=== PATIENT | female | born 1965 | race African-American/Black ===

== ENCOUNTER 2018-11-16 23:33 | Inpatient (IN) | payer OTHER ==
[2018-11-16] MEDS ORDERED: HYDROmorphone 1 MG/ML 1 ML SYRINGE IVP STA (23:55)
[2018-11-16] MEDS ORDERED: SODIUM CHLORIDE 0.9% 500 ML 500 ML IV STA (23:55)
[2018-11-16] MEDS ORDERED: SODIUM CHLORIDE 0.9% 1,000 ML IV STA (23:55)
--- NOTE | 2018-11-17 00:32 | ED ---
Abdominal Pain HPI - General Chief Complaint: Abdominal Pain Stated Complaint: Pain LLQ Time Seen by Provider: 11/16/18 23:55 Source: patient, RN notes reviewed, old records reviewed Mode of arrival: ambulatory Limitations: no limitations - History of Present Illness Initial Comments: This is a 53-year-old female the ER for evaluation left for quadrant abdominal pain left lower quadrant tenderness. No prior history of colonoscopy or surgery. Patient is mild nausea no vomiting. No recent diarrhea. -: days(s) Location: LLQ, suprapubic Radiation: LLQ Migration to: suprapubic Severity: moderate Severity scale (1-10): 4 Quality: cramping, stabbing, aching Consistency: intermittent Improves With: nothing Worsens With: nothing Associated Symptoms: nausea - Related Data Allergies Allergy/AdvReac Type Severity Reaction Status Date / Time No Known Allergies Allergy Verified 11/16/18 23:49 Review of Systems ROS Statement: Those systems with pertinent positive or pertinent negative responses have been documented in the HPI. ROS Other: All systems not noted in ROS Statement are negative. Past Medical History Past Medical History: Hypertension Additional Past Medical History / Comment(s): Heart murmur History of Any Multi-Drug Resistant Organisms: None Reported Past Surgical History: No Surgical Hx Reported Past Psychological History: No Psychological Hx Reported Smoking Status: Current every day smoker Past Alcohol Use History: Rare Past Drug Use History: None Reported - Past Family History Father Family Medical History: Renal Disease Mother Additional Family Medical History / Comment(s): from ALS General Exam Limitations: no limitations General appearance: alert, in no apparent distress Head exam: Present: atraumatic, normocephalic, normal inspection Eye exam: Present: normal appearance, PERRL, EOMI. Absent: scleral icterus, conjunctival injection, periorbital swelling ENT exam: Present: normal exam, mucous membranes moist Neck exam: Present: normal inspection. Absent: tenderness, meningismus, lymphadenopathy Respiratory exam: Present: normal lung sounds bilaterally. Absent: respiratory distress, wheezes, rales, rhonchi, stridor Cardiovascular Exam: Present: regular rate, normal rhythm, normal heart sounds. Absent: systolic murmur, diastolic murmur, rubs, gallop, clicks GI/Abdominal exam: Present: soft, tenderness, guarding, normal bowel sounds. Absent: distended, rebound, rigid Extremities exam: Present: normal inspection, full ROM, normal capillary refill. Absent: tenderness, pedal edema, joint swelling, calf tenderness Back exam: Present: normal inspection Neurological exam: Present: alert, oriented X3, CN II-XII intact Psychiatric exam: Present: normal affect, normal mood Skin exam: Present: warm, dry, intact, normal color. Absent: rash Course Vital Signs 11/16/18 11/17/18 23:44 02:28 Temperature 99.9 F H 99.5 F Pulse Rate 90 86 Respiratory 18 17 Rate Blood Pressure 151/109 152/76 O2 Sat by Pulse 100 100 Oximetry Medical Decision Making - Medical Decision Making 53 female the ER for evaluation. Patient resents today for evaluation regards to abdominal pain, positive diverticulitis with abscess. We will admit for general surgery evaluation - Lab Data Result diagrams: 11/16/18 00:15 11/16/18 00:15 Lab Results 11/16/18 11/16/18 11/16/18 Range/Units 00:15 00:15 00:15 WBC 12.0 H (3.8-10.6) k/uL RBC 4.60 (3.80-5.40) m/uL Hgb 13.8 (11.4-16.0) gm/dL Hct 42.6 (34.0-46.0) % MCV 92.6 (80.0-100.0) fL MCH 30.1 (25.0-35.0) pg MCHC 32.4 (31.0-37.0) g/dL RDW 12.3 (11.5-15.5) % Plt Count 388 (150-450) k/uL Neutrophils % 63 % Lymphocytes % 27 % Monocytes % 5 % Eosinophils % 3 % Basophils % 1 % Neutrophils # 7.6 (1.3-7.7) k/uL Lymphocytes # 3.2 (1.0-4.8) k/uL Monocytes # 0.6 (0-1.0) k/uL Eosinophils # 0.3 (0-0.7) k/uL Basophils # 0.1 (0-0.2) k/uL Sodium 140 (137-145) mmol/L Potassium 3.9 (3.5-5.1) mmol/L Chloride 105 (98-107) mmol/L Carbon Dioxide 26 (22-30) mmol/L Anion Gap 9 mmol/L BUN 11 (7-17) mg/dL Creatinine 0.89 (0.52-1.04) mg/dL Est GFR (CKD-EPI)AfAm 85 (>60 ml/min/1.73 sqM) Est GFR (CKD-EPI)NonAf 74 (>60 ml/min/1.73 sqM) Glucose 97 (74-99) mg/dL Plasma Lactic Acid Adrien 1.3 (0.7-2.0) mmol/L Calcium 9.5 (8.4-10.2) mg/dL Total Bilirubin 0.5 (0.2-1.3) mg/dL AST 21 (14-36) U/L ALT 28 (9-52) U/L Alkaline Phosphatase 86 (38-126) U/L Total Protein 7.6 (6.3-8.2) g/dL Albumin 4.1 (3.5-5.0) g/dL Amylase 77 (30-110) U/L Lipase 67 (23-300) U/L Urine Color Urine Appearance (Clear) Urine pH (5.0-8.0) Ur Specific Anthony (1.001-1.035) Urine Protein (Negative) Urine Glucose (UA) (Negative) Urine Ketones (Negative) Urine Blood (Negative) Urine Nitrite (Negative) Urine Bilirubin (Negative) Urine Urobilinogen (<2.0) mg/dL Ur Leukocyte Esterase (Negative) 11/16/18 Range/Units 00:15 WBC (3.8-10.6) k/uL RBC (3.80-5.40) m/uL Hgb (11.4-16.0) gm/dL Hct (34.0-46.0) % MCV (80.0-100.0) fL MCH (25.0-35.0) pg MCHC (31.0-37.0) g/dL RDW (11.5-15.5) % Plt Count (150-450) k/uL Neutrophils % % Lymphocytes % % Monocytes % % Eosinophils % % Basophils % % Neutrophils # (1.3-7.7) k/uL Lymphocytes # (1.0-4.8) k/uL Monocytes # (0-1.0) k/uL Eosinophils # (0-0.7) k/uL Basophils # (0-0.2) k/uL Sodium (137-145) mmol/L Potassium (3.5-5.1) mmol/L Chloride (98-107) mmol/L Carbon Dioxide (22-30) mmol/L Anion Gap mmol/L BUN (7-17) mg/dL Creatinine (0.52-1.04) mg/dL Est GFR (CKD-EPI)AfAm (>60 ml/min/1.73 sqM) Est GFR (CKD-EPI)NonAf (>60 ml/min/1.73 sqM) Glucose (74-99) mg/dL Plasma Lactic Acid Adrien (0.7-2.0) mmol/L Calcium (8.4-10.2) mg/dL Total Bilirubin (0.2-1.3) mg/dL AST (14-36) U/L ALT (9-52) U/L Alkaline Phosphatase (38-126) U/L Total Protein (6.3-8.2) g/dL Albumin (3.5-5.0) g/dL Amylase (30-110) U/L Lipase (23-300) U/L Urine Color Light Yellow Urine Appearance Clear (Clear) Urine pH 6.0 (5.0-8.0) Ur Specific Anthony 1.005 (1.001-1.035) Urine Protein Negative (Negative) Urine Glucose (UA) Negative (Negative) Urine Ketones Negative (Negative) Urine Blood Negative (Negative) Urine Nitrite Negative (Negative) Urine Bilirubin Negative (Negative) Urine Urobilinogen <2.0 (<2.0) mg/dL Ur Leukocyte Esterase Negative (Negative) - Radiology Data Radiology results: report reviewed (CT abdomen pelvis is positive diverticulitis with abscess.), image reviewed Disposition Clinical Impression: Abdominal pain, Diverticulitis Disposition: ADMITTED IP TO THIS [facility] Condition: Good Is patient prescribed a controlled substance at d/c from ED?: No
[2018-11-17 00:35] LABS: Appearance,Urine Clear (Clear); Basophils # (A) 0.1 k/uL (0-0.2); Basophils % (A) 1 %; Bilirubin,Urine Negative (Negative); Blood,Urine Negative (Negative); Color,Urine Light Yellow; Eosinophils # (A) 0.3 k/uL (0-0.7); Eosinophils % (A) 3 %; Glucose,Urine (UA) Negative (Negative); HCT 42.6 % (34.0-46.0); HGB 13.8 gm/dL (11.4-16.0); Ketones,Urine Negative (Negative); Leukocyte Esterase,Urine Negative (Negative); Lymphocytes # (A) 3.2 k/uL (1.0-4.8); Lymphocytes % (A) 27 %; MCH 30.1 pg (25.0-35.0); MCHC 32.4 g/dL (31.0-37.0); MCV 92.6 fL (80.0-100.0); Mean Platelet Volume 6.5; Monocytes # (A) 0.6 k/uL (0-1.0); Monocytes % (A) 5 %; Neutrophils # (A) 7.6 k/uL (1.3-7.7); Neutrophils % (A) 63 %; Nitrite,Urine Negative (Negative); Platelet Count 388 k/uL (150-450); Protein,Urine Negative (Negative); RDW 12.3 % (11.5-15.5); Specific Gravity,Urine 1.005 (1.001-1.035); Urobilinogen,Urine <2.0 mg/dL (<2.0)
[2018-11-17 00:41] LABS: Albumin 4.1 g/dL (3.5-5.0); Calcium 9.5 mg/dL (8.4-10.2); Potassium 3.9 mmol/L (3.5-5.1); Total Bilirubin 0.5 mg/dL (0.2-1.3); Total Protein 7.6 g/dL (6.3-8.2)
--- NOTE | 2018-11-17 01:02 | CT ---
EXAMINATION TYPE: CT abdomen pelvis w con DATE OF EXAM: 11/17/2018 COMPARISON: None HISTORY: abd pain CT DLP: 1359.1 mGycm Automated exposure control for dose reduction was used. TECHNIQUE: Helical acquisition of images was performed from the lung bases through the pelvis. CONTRAST: Performed without Oral Contrast and with IV Contrast, patient injected with 100 mL of Isovue 300. FINDINGS: Lung bases are clear. There is no pleural effusion. Heart is borderline enlarged. There are small hia edvin hernia. Liver spleen pancreas appear normal. Bile ducts are not dilated. There are clips from cholecystectomy . There is no adrenal mass. The kidneys show satisfactory contrast opacification. There is no hydroneph rosis. There is no retroperitoneal adenopathy. There is some fat stranding around the mid sigmoid colon. There are numerous sigmoid diverticula. Jose Alberto dder distends smoothly. Uterus is anteverted. There is no inguinal hernia. There is no free fluid in the pelvis. There is no evidence of free air. There is upper abdominal ventral hernia that contains f at. This measures 4 x 2.5 cm. Appendix appears normal. IMPRESSION: THERE IS FOCAL SEGMENT OF SIGMOID DIVERTICULITIS. THE SEGMENT MEASURES 9 CM IN LENGTH. THERE IS 2.5 C M IRREGULAR FLUID COLLECTION ON THE ANTERIOR WALL OF THE MID SIGMOID COLON CONSISTENT WITH PERIDIVERT ICULAR ABSCESS..
[2018-11-17] MEDS ORDERED: MORPHINE SULFATE 4 MG/ML SYRINGE IVP STA (02:06)
[2018-11-17] MEDS ORDERED: ONDANSETRON 4 MG/2 ML VIAL IVP PRN (02:06)
[2018-11-17] MEDS ORDERED: AMPICILLIN-SULBACTAM 3 GM in SODIUM CHLORIDE 0.9% 100 ML IVPB STA (02:06)
[2018-11-17] MEDS: MORPHINE SULFATE 4 MG/ML SYRINGE IVP PRN ×2 (04:41→09:58)
[2018-11-17] MEDS: PANTOPRAZOLE 40 MG/10 ML VIAL IVP SCH (08:56)
[2018-11-17] MEDS: AMPICILLIN-SULBACTAM 3 GM in SODIUM CHLORIDE 0.9% 100 ML IVPB SCH ×3 (08:56→19:43)
--- NOTE | 2018-11-17 11:43 | P.HPIM ---
History of Present Illness 53-year-old female came in with compensative left lower quadrant abdominal pain sharp in nature found to have sigmoid diverticulitis / pain nonradiating and not associated with diarrhea constipation or Nausea vomiting. Patient also has a 2.5 cm irregular fluid collection in the lateral wall of the sigmoid colon consistent with peridiverticular abscess because of general surgery was consulted patient was started on Unasyn which will be continued.she is comparing of epigastric discomfort probably secondary to hospitalization related stress ulcerations or gastritis and patient is already on Protonix. Review of Systems REVIEW OF SYSTEMS: CONSTITUTIONAL: No fever, no malaise, no fatigue. HEENT: No recent visual problems or hearing problems. Denied any sore throat. CARDIOVASCULAR: No chest pain, orthopnea, PND, no palpitations, no syncope. PULMONARY: No shortness of breath, no cough, no hemoptysis. GASTROINTESTINAL: 's mentioned in HPI NEUROLOGICAL: No headaches, no weakness, no numbness. HEMATOLOGICAL: Denies any bleeding or petechiae. GENITOURINARY: Denies any burning micturition, frequency, or urgency. MUSCULOSKELETAL/RHEUMATOLOGICAL: Denies any joint pain, swelling, or any muscle pain. ENDOCRINE: Denies any polyuria or polydipsia. The rest of the 14-point review of systems is negative. Past Medical History Past Medical History: Hypertension Additional Past Medical History / Comment(s): Heart murmur History of Any Multi-Drug Resistant Organisms: None Reported Past Surgical History: No Surgical Hx Reported Past Psychological History: No Psychological Hx Reported Smoking Status: Current every day smoker Past Alcohol Use History: Rare Past Drug Use History: None Reported - Past Family History Father Family Medical History: Renal Disease Mother Additional Family Medical History / Comment(s): from ALS Medications and Allergies Home Medications Medication Instructions Recorded Confirmed Type Cetirizine HCl [Zyrtec] 10 mg PO DAILY PRN 11/17/18 11/17/18 History Losartan/Hydrochlorothiazide 1 tab PO DAILY 11/17/18 11/17/18 History [Losartan-Hctz 100-12.5 mg Tab] Allergies Allergy/AdvReac Type Severity Reaction Status Date / Time No Known Allergies Allergy Verified 11/17/18 08:30 Physical Exam Vitals: Vital Signs Temp Pulse Pulse Resp BP BP Pulse Ox 11/17/18 07:15 99.3 F 80 16 137/83 100 02/03/19 02:51 99.3 F 84 16 155/94 100 11/17/18 02:28 99.5 F 86 17 152/76 100 11/16/18 23:44 99.9 F H 90 18 151/109 100 Intake and Output 11/16/18 11/17/18 11/17/18 22:59 06:59 14:59 Intake Total 240 Balance 240 Intake: Oral 240 Other: Weight 94.801 kg PHYSICAL EXAMINATION: GENERAL: The patient is alert and oriented x3, not in any acute distress. Well developed, well nourished. HEENT: Pupils are round and equally reacting to light. EOMI. No scleral icterus. No conjunctival pallor. Normocephalic, atraumatic. No pharyngeal erythema. No thyromegaly. CARDIOVASCULAR: S1 and S2 present. No murmurs, rubs, or gallops. PULMONARY: Chest is clear to auscultation, no wheezing or crackles. ABDOMEN: Soft, tenderness in the left lower quadrant, normoactive bowel sounds. No palpable organomegaly. MUSCULOSKELETAL: No joint swelling or deformity. EXTREMITIES: No cyanosis, clubbing, or pedal edema. NEUROLOGICAL: Gross neurological examination did not reveal any focal deficits. SKIN: No rashes. Results CBC & Chem 7: 11/16/18 00:15 11/16/18 00:15 Labs: Abnormal Lab Results - Last 24 Hours (Table) 11/16/18 Range/Units 00:15 WBC 12.0 H (3.8-10.6) k/uL Microbiology - Last 24 Hours (Table) 11/16/18 00:15 Urine Culture - Preliminary Urine,Voided Thrombosis Risk Factor Assmnt - Choose All That Apply Each Factor Represents 1 point: Age 41-60 years, Obesity (BMI >25) Thrombosis Risk Factor Assessment Total Risk Factor Score: 2 Thrombosis Risk Factor Assessment Level: Low Risk Assessment and Plan Plan: -diabetic lightest with peridiverticular abscess general surgery was consulted patient is presently nothing by mouth until general surgery evaluation. Patient will be continued on Unasyn. -Hypertension hold off antihypertensive medications present medications with concerns of hypotension from diverticulitis will monitor blood pressure -stress related gastritis: Continue Protonix -nicotine abuse: Counseling was provided
--- NOTE | 2018-11-17 12:25 | P.GSCN ---
History of Present Illness Consult date: 11/17/18 History of present illness: CHIEF COMPLAINT: Abdominal pain HISTORY OF PRESENT ILLNESS: The patient is a 53 year old female who comes in with 2+ day history of left lower quadrant abdominal pain. She denies any previous history of colonoscopy. She has no family history of colon cancer to her knowledge. She reports having constipation and abdominal pain for over [address] of the abdomen and pelvis now shows intramural abscess of the sigmoid colon hence her admission. She denies any recent passage of flatus today. PAST MEDICAL HISTORY: See list. PAST SURGICAL HISTORY: See list. MEDICATIONS: See list. ALLERGIES: See list. SOCIAL HISTORY: No illicit drug use. Tobacco abuse. FAMILY HISTORY: No reports of Crohn's disease or inflammatory bowel disease REVIEW OF ORGAN SYSTEMS: CONSTITUTIONAL: No fevers or chills HEENT: No troubles with vision or hearing. No reports of dysphagia. ENDOCRINE: No reports of thyroid disorders. No diabetes. CARDIOVASCULAR: No heart attack. No chest pain. Has hypertension RESPIRATORY: No shortness of breath or pneumonia. Has seasonal allergies GASTROINTESTINAL: No reports of recent blood in stools. Has constipation. NEURO: No reports of stroke or seizure disorders. PSYCH: No depression or suicidal ideation HEMATOLOGIC: No easy bruising or bleeding LYMPHATIC: The patient denies any lumps and bumps around the neck. GENITOURINARY: Denies any blood in urine or increased urinary frequency. MUSCULOSKELETAL: Has back pain, stiffness or joint arthritis. SKIN: No skin cancer or rash. PHYSICAL EXAM: VITAL SIGNS: Reviewed GENERAL: Well-developed in no acute distress. HEENT: No sclera icterus. Extraocular movements grossly intact. Moist buccal mucosa. Head is atraumatic, normocephalic. Hears conversational speech. No nasal drainage. NECK: Supple without lymphadenopathy. CHEST: Non-labored respirations and equal bilateral excursions. CARDIOVASCULAR: Regular rate with regular rhythm. Palpable 2+ radial pulses. ABDOMEN: Soft. Tender at left lower quadrant. No peritonitis. Mild distention. Obese. MUSCULOSKELETAL: No clubbing, cyanosis or edema. NEUROLOGIC: No focal or lateralizing signs. Cranial nerves II through XII grossly intact. PSYCH: Appropriate affect. Alert and oriented to person, place and time. SKIN: Well perfused. Good skin turgor. LABS: Reviewed STUDIES: Reviewed ASSESSMENT: 1. Perforated sigmoid diverticulitis. 2. Left lower quadrant abdominal pain. PLAN: 1. CT of the abdomen and pelvis reviewed demonstrating small less than 3 cm abscess within the sigmoid colon wall. Otherwise patient clinically improved. 2. She has no peritonitis and exam. Recommend IV antibiotics. 3. No surgical intervention at this time. 4. May have ice chips and popsicles. 5. May have clears as abdominal pain continues to improve. 6. Will need outpatient colonoscopy in 8 weeks as she has no prior. Thank you for this kind consultation. Past Medical History Past Medical History: Hypertension Additional Past Medical History / Comment(s): Heart murmur History of Any Multi-Drug Resistant Organisms: None Reported Past Surgical History: No Surgical Hx Reported Past Psychological History: No Psychological Hx Reported Smoking Status: Current every day smoker Past Alcohol Use History: Rare Past Drug Use History: None Reported - Past Family History Father Family Medical History: Renal Disease Mother Additional Family Medical History / Comment(s): from ALS Medications and Allergies Home Medications Medication Instructions Recorded Confirmed Type Cetirizine HCl [Zyrtec] 10 mg PO DAILY PRN 11/17/18 11/17/18 History Losartan/Hydrochlorothiazide 1 tab PO DAILY 11/17/18 11/17/18 History [Losartan-Hctz 100-12.5 mg Tab] Allergies Allergy/AdvReac Type Severity Reaction Status Date / Time No Known Allergies Allergy Verified 11/17/18 08:30 Surgical - Exam Vital Signs Temp Pulse Resp BP Pulse Ox 99.9 F H 90 18 151/109 100 11/16/18 23:44 11/16/18 23:44 11/16/18 23:44 11/16/18 23:44 11/16/18 23:44 Results - Labs 11/18/18 06:25 11/18/18 06:25 Abnormal Lab Results - Last 24 Hours (Table) 11/16/18 Range/Units 00:15 WBC 12.0 H (3.8-10.6) k/uL Microbiology - Last 24 Hours (Table) 11/16/18 00:15 Urine Culture - Preliminary Urine,Voided Diabetes panel 11/16/18 Range/Units 00:15 Sodium 140 (137-145) mmol/L Potassium 3.9 (3.5-5.1) mmol/L Chloride 105 (98-107) mmol/L Carbon Dioxide 26 (22-30) mmol/L BUN 11 (7-17) mg/dL Creatinine 0.89 (0.52-1.04) mg/dL Glucose 97 (74-99) mg/dL Calcium 9.5 (8.4-10.2) mg/dL AST 21 (14-36) U/L ALT 28 (9-52) U/L Alkaline Phosphatase 86 (38-126) U/L Total Protein 7.6 (6.3-8.2) g/dL Albumin 4.1 (3.5-5.0) g/dL Calcium panel 11/16/18 Range/Units 00:15 Calcium 9.5 (8.4-10.2) mg/dL Albumin 4.1 (3.5-5.0) g/dL Pituitary panel 11/16/18 Range/Units 00:15 Sodium 140 (137-145) mmol/L Potassium 3.9 (3.5-5.1) mmol/L Chloride 105 (98-107) mmol/L Carbon Dioxide 26 (22-30) mmol/L BUN 11 (7-17) mg/dL Creatinine 0.89 (0.52-1.04) mg/dL Glucose 97 (74-99) mg/dL Calcium 9.5 (8.4-10.2) mg/dL Adrenal panel 11/16/18 Range/Units 00:15 Sodium 140 (137-145) mmol/L Potassium 3.9 (3.5-5.1) mmol/L Chloride 105 (98-107) mmol/L Carbon Dioxide 26 (22-30) mmol/L BUN 11 (7-17) mg/dL Creatinine 0.89 (0.52-1.04) mg/dL Glucose 97 (74-99) mg/dL Calcium 9.5 (8.4-10.2) mg/dL Total Bilirubin 0.5 (0.2-1.3) mg/dL AST 21 (14-36) U/L ALT 28 (9-52) U/L Alkaline Phosphatase 86 (38-126) U/L Total Protein 7.6 (6.3-8.2) g/dL Albumin 4.1 (3.5-5.0) g/dL - Imaging CT scan - abdomen: report reviewed, image reviewed CT scan - pelvis: report reviewed, image reviewed (Has sigmoid diverticulitis with intramural abscess) Assessment and Plan (1) Perforated sigmoid colon Current Visit: Yes Status: Acute Code(s): K63.1 - PERFORATION OF INTESTINE ( NONTRAUMATIC) SNOMED Code(s): 618998108 (2) Abscess of sigmoid colon due to diverticulitis Current Visit: Yes Status: Acute Code(s): K57.20 - DVTRCLI OF LG INT W PERFORATION AND ABSCESS W/O BLEEDING SNOMED Code(s): 6538981341254153 (3) Left lower quadrant pain Current Visit: Yes Status: Acute Code(s): R10.32 - LEFT LOWER QUADRANT PAIN SNOMED Code(s): 331073537 (4) Tobacco abuse Current Visit: Yes Status: Acute Code(s): Z72.0 - TOBACCO USE SNOMED Code( s): 762675280 (5) Morbid obesity due to excess calories Current Visit: Yes Status: Acute Code(s): E66.01 - MORBID (SEVERE) OBESITY DUE TO EXCESS CALORIES SNOMED Code(s): 342649614 (6) BMI 35.0-35.9,adult Current Visit: Yes Status: Acute Code(s): Z68.35 - BODY MASS INDEX (BMI) 35.0-35.9, ADULT SNOMED Code(s): 005281787 (7) Hypertensive heart disease Current Visit: Yes Status: Acute Code(s): I11.9 - HYPERTENSIVE HEART DISEASE WITHOUT HEART FAILURE SNOMED Code(s): 87177050
[2018-11-17] MEDS: ENOXAPARIN 40 MG/0.4 ML SYRINGE SQ SCH (14:09)
[2018-11-17] MEDS: SODIUM CHLORIDE 0.9% 1,000 ML IV SCH ×2 (16:18→23:22)
[2018-11-18] MEDS: AMPICILLIN-SULBACTAM 3 GM in SODIUM CHLORIDE 0.9% 100 ML IVPB SCH ×4 (02:24→20:53)
[2018-11-18 06:58] LABS: HCT 36.4 % (34.0-46.0); HGB 11.7 gm/dL (11.4-16.0); MCH 30.5 pg (25.0-35.0); MCHC 32.2 g/dL (31.0-37.0); MCV 94.7 fL (80.0-100.0); Mean Platelet Volume 6.2; Platelet Count 344 k/uL (150-450); RBC 3.84 m/uL (3.80-5.40); RDW 12.2 % (11.5-15.5); WBC 8.1 k/uL (3.8-10.6)
[2018-11-18 07:08] LABS: Anion Gap 5 mmol/L; Blood Urea Nitrogen 4 mg/dL (7-17); Calcium 8.8 mg/dL (8.4-10.2); Carbon Dioxide 28 mmol/L (22-30); Chloride 111 mmol/L (98-107); Glucose 94 mg/dL (74-99); Potassium 3.7 mmol/L (3.5-5.1); Sodium 144 mmol/L (137-145)
[2018-11-18] MEDS: ENOXAPARIN 40 MG/0.4 ML SYRINGE SQ SCH (07:48)
[2018-11-18] MEDS: PANTOPRAZOLE 40 MG/10 ML VIAL IVP SCH (07:48)
--- NOTE | 2018-11-18 11:27 | P.PN ---
<[place] Panda Vitor - Last Filed: 11/18/18 11:22> Subjective Progress Note Date: 11/18/18 CHIEF COMPLAINT: Abdominal pain HISTORY OF PRESENT ILLNESS: 53-year-old -[place] female who presented to emergency room with abdominal pain. CT of the abdomen and pelvis revealed less than 3 cm abscess within the sigmoid colon wall. Patient denies pain this morning. States she is feeling well. She has been tolerating water and ice chips. Denies nausea or vomiting. WBC 8.1. PHYSICAL EXAM: VITAL SIGNS: Currently stable. GENERAL: Well-developed in no acute distress. HEENT: No sclera icterus. Extraocular movements grossly intact. Moist buccal mucosa. Head is atraumatic, normocephalic. Hears conversational speech. No nasal drainage. NECK: Supple without lymphadenopathy. CHEST: Non-labored respirations and equal bilateral excursions. CARDIOVASCULAR: Regular rate with regular rhythm. Palpable 2+ radial pulses. ABDOMEN: Soft. Nondistended. Nontender. MUSCULOSKELETAL: No clubbing, cyanosis or edema. NEUROLOGIC: No focal or lateralizing signs. Cranial nerves II through XII grossly intact. PSYCH: Appropriate affect. Alert and oriented to person, place and time. SKIN: Well perfused. Good skin turgor. ASSESSMENT: 1. Abdominal pain 2. Sigmoid diverticulitis with abscess measuring < 3cm PLAN: 1. Clear liquid diet. Advance as tolerated 2. Continue antibiotics 3. Stable from a surgical standpoint. No surgical intervention recommended at this time 4. Patient will need outpatient colonoscopy in 8 weeks Nurse practitioner note has been reviewed by physician. Signing provider agrees with the documented findings, assessment, and plan of care. Objective - Vital Signs Vital signs: Vital Signs Temp 98.5 F 11/18/18 07:13 Pulse 59 L 11/18/18 07:13 Resp 16 11/18/18 07:13 BP 142/85 11/18/18 07:13 Pulse Ox 99 11/18/18 07:13 Intake & Output 11/17/18 11/18/18 11/18/18 18:59 06:59 18:59 Intake Total 1000 Balance 1000 Intake: Intake, IV Titration 1000 Amount Ampicillin-Sulbactam 3 gm 200 In Sodium Chloride 0.9% 100 ml @ 200 mls/hr IVPB Q6H [facility] Rx#:[id number] Sodium Chloride 0.9% 1, 800 000 ml @ 100 mls/hr IV . Q10H [facility] Rx#:[id number] Other: # Voids 3 - Labs CBC & Chem 7: 11/18/18 06:25 11/18/18 06:25 Labs: Abnormal Lab Results - Last 24 Hours (Table) 11/18/18 Range/Units 06:25 Chloride 111 H (98-107) mmol/L BUN 4 L (7-17) mg/dL Microbiology - Last 24 Hours (Table) 11/16/18 00:15 Urine Culture - Final Urine,Voided Assessment and Plan (1) Abdominal pain Current Visit: Yes Status: Acute Code(s): R10.9 - UNSPECIFIED ABDOMINAL PAIN SNOMED Code(s): 08094602 (2) Diverticulitis Current Visit: Yes Status: Acute Code(s): K57.92 - DVTRCLI OF INTEST, PART UNSP, W/O PERF OR ABSCESS W/O BLEED SNOMED Code(s): 523574169 <Diane Bonner N - Last Filed: 11/18/18 16:36> Objective - Vital Signs Vital signs: Vital Signs Temp 98.6 F 11/18/18 14:44 Pulse 60 11/18/18 14:44 Resp 16 11/18/18 14:44 BP 140/82 11/18/18 14:44 Pulse Ox 99 11/18/18 14:44 Intake & Output 11/17/18 11/18/18 11/18/18 18:59 06:59 18:59 Intake Total 1000 Balance 1000 Intake: Intake, IV Titration 1000 Amount Ampicillin-Sulbactam 3 gm 200 In Sodium Chloride 0.9% 100 ml @ 200 mls/hr IVPB Q6H [facility] Rx#:[id number] Sodium Chloride 0.9% 1, 800 000 ml @ 100 mls/hr IV . Q10H [facility] Rx#:[id number] Other: # Voids 3 2 - Labs CBC & Chem 7: 11/18/18 06:25 11/18/18 06:25 Labs: Abnormal Lab Results - Last 24 Hours (Table) 11/18/18 Range/Units 06:25 Chloride 111 H (98-107) mmol/L BUN 4 L (7-17) mg/dL Microbiology - Last 24 Hours (Table) 11/16/18 00:15 Urine Culture - Final Urine,Voided Assessment and Plan Plan: Start low fiber diet tomorrow. May be discharged home with antibiotics for additional 10 days to 2 weeks. Outpatient colonoscopy for January personally reviewed her imaging study with her and care plan
[2018-11-18] MEDS: SODIUM CHLORIDE 0.9% 1,000 ML IV SCH ×2 (14:39→20:54)
[2018-11-18] MEDS: MORPHINE SULFATE 4 MG/ML SYRINGE IVP PRN (16:26)
[2018-11-18] MEDS ORDERED: Potassium Replacement Protocol 1 EACH MISC MISCELLANE PRN (17:13)
--- NOTE | 2018-11-18 17:19 | P.PN ---
Subjective Progress Note Date: 11/18/18 Interval history:53-year-old female came in with compensative left lower quadrant abdominal pain sharp in nature found to have sigmoid diverticulitis pain nonradiating and not associated with diarrhea constipation or Nausea vomiting. Patient also has a 2.5 cm irregular fluid collection in the lateral wall of the sigmoid colon consistent with peridiverticular abscess because of general surgery was consulted patient was started on Unasyn which will be continued.she is comparing of epigastric discomfort probably secondary to hospitalization related stress ulcerations or gastritis and patient is already on Protonix. 11/18/2018 continues on IV antibiotics. afebrile, normal WBC. Denies abdominal pain, passing flatus, no bowel movement. Reports feeling hungry. Diet has not been advanced to clear liquids as per surgery, denies chest pain, palpitations or shortness of breath. Ambulating in room, denies lightheadedness dizziness or focal deficits. Objective - Vital Signs Vital signs: Vital Signs Temp 98.6 F 11/18/18 14:44 Pulse 60 11/18/18 14:44 Resp 16 11/18/18 14:44 BP 140/82 11/18/18 14:44 Pulse Ox 99 11/18/18 14:44 Intake & Output 11/17/18 11/18/18 11/18/18 18:59 06:59 18:59 Intake Total 1000 Balance 1000 Intake: Intake, IV Titration 1000 Amount Ampicillin-Sulbactam 3 gm 200 In Sodium Chloride 0.9% 100 ml @ 200 mls/hr IVPB Q6H IRAJ Rx#:[id number] Sodium Chloride 0.9% 1, 800 000 ml @ 100 mls/hr IV . Q10H IRAJ Rx#:[id number] Other: # Voids 3 2 - Exam GENERAL: The patient is alert and oriented x3, no acute distress. HEENT: Pupils are round and equally reacting to light. EOMI. No scleral icterus. No conjunctival pallor. Normocephalic, atraumatic. CARDIOVASCULAR: S1 and S2 present. No murmurs, rubs, or gallops. PULMONARY: Chest is clear to auscultation, no wheezing or crackles. ABDOMEN: Soft, nondistended, nontender, positive bowel sounds. No palpable organomegaly. MUSCULOSKELETAL: No joint swelling or deformity. EXTREMITIES: No cyanosis, clubbing, or pedal edema. NEUROLOGICAL: Gross neurological examination did not reveal any focal deficits. SKIN: No rashes. - Labs CBC & Chem 7: 11/18/18 06:25 11/18/18 06:25 Labs: Abnormal Lab Results - Last 24 Hours (Table) 11/18/18 Range/Units 06:25 Chloride 111 H (98-107) mmol/L BUN 4 L (7-17) mg/dL Microbiology - Last 24 Hours (Table) 11/16/18 00:15 Urine Culture - Final Urine,Voided Assessment and Plan Assessment: -Sigmoid diverticulitis with peridiverticular abscess. -Hypertension. -stress related gastritis -nicotine abuse: Counseling was provided Plan: Continue on current medication regime ,monitoring and symptomatic treatment. Maintain PPI, antibiotics. Diet is been advanced to clear liquids as per surgery. Continue monitoring overnight. Smoking cessation readdressed. Discharge planning in progress for tomorrow. The impression and plan of care has been dictated as directed. : I performed a history and examination of this patient, discussed the same with the dictator. I agree with the dictator's note ,documented as a scribe. Any additional findings or plans will be noted.
[2018-11-19] MEDS: SODIUM CHLORIDE 0.9% 1,000 ML IV SCH (01:54)
[2018-11-19] MEDS: AMPICILLIN-SULBACTAM 3 GM in SODIUM CHLORIDE 0.9% 100 ML IVPB SCH ×2 (01:54→07:40)
[2018-11-19 07:31] VITALS: BP 156/73; PULSE 62; RESP 16; TEMP 98.2
[2018-11-19] MEDS: PANTOPRAZOLE 40 MG/10 ML VIAL IVP SCH (07:41)
[2018-11-19] MEDS: ENOXAPARIN 40 MG/0.4 ML SYRINGE SQ SCH (07:41)
--- NOTE | 2018-11-19 11:42 | P.PN ---
<[place] Panda Vitor - Last Filed: 11/19/18 11:41> Subjective Progress Note Date: 11/19/18 CHIEF COMPLAINT: Abdominal pain HISTORY OF PRESENT ILLNESS: 53-year-old -[place] female who presented to emergency room with abdominal pain. CT of the abdomen and pelvis revealed less than 3 cm abscess within the sigmoid colon wall. Patient denies pain this morning. States she is feeling well. She has been tolerating low fiber diet. PHYSICAL EXAM: VITAL SIGNS: Currently stable. GENERAL: Well-developed in no acute distress. HEENT: No sclera icterus. Extraocular movements grossly intact. Moist buccal mucosa. Head is atraumatic, normocephalic. Hears conversational speech. No nasal drainage. NECK: Supple without lymphadenopathy. CHEST: Non-labored respirations and equal bilateral excursions. CARDIOVASCULAR: Regular rate with regular rhythm. Palpable 2+ radial pulses. ABDOMEN: Soft. Nondistended. Nontender. MUSCULOSKELETAL: No clubbing, cyanosis or edema. NEUROLOGIC: No focal or lateralizing signs. Cranial nerves II through XII grossly intact. PSYCH: Appropriate affect. Alert and oriented to person, place and time. SKIN: Well perfused. Good skin turgor. ASSESSMENT: 1. Abdominal pain 2. Sigmoid diverticulitis with abscess measuring < 3cm PLAN: 1. Stable from a surgical standpoint. No surgical intervention recommended at this time 2. Antibiotics at discharge per medicine team 3. Patient will need outpatient colonoscopy in 8 weeks Nurse practitioner note has been reviewed by physician. Signing provider agrees with the documented findings, assessment, and plan of care. Objective - Vital Signs Vital signs: Vital Signs Temp 98.2 F 11/19/18 07:30 Pulse 62 11/19/18 07:30 Resp 16 11/19/18 07:30 BP 156/73 11/19/18 07:30 Pulse Ox 99 11/19/18 07:30 Intake & Output 11/18/18 11/19/18 11/19/18 18:59 06:59 18:59 Intake Total 900 240 Balance 900 240 Intake: Intake, IV Titration 900 Amount Ampicillin-Sulbactam 3 gm 100 In Sodium Chloride 0.9% 100 ml @ 200 mls/hr IVPB Q6H IRAJ Rx#:[id number] Sodium Chloride 0.9% 1, 800 000 ml @ 100 mls/hr IV . Q10H IRAJ Rx#:[id number] Oral 240 Other: Voiding Method Toilet # Voids 2 2 - Labs CBC & Chem 7: 11/18/18 06:25 11/18/18 06:25 Labs: Microbiology - Last 24 Hours (Table) 11/16/18 00:15 Urine Culture - Final Urine,Voided Assessment and Plan (1) Abdominal pain Status: Acute Code(s): R10.9 - UNSPECIFIED ABDOMINAL PAIN SNOMED Code(s): 36413305 (2) Diverticulitis Status: Acute Code(s): K57.92 - DVTRCLI OF INTEST, PART UNSP, W/O PERF OR ABSCESS W/O BLEED SNOMED Code(s): 648063193 <Diane Bonner N - Last Filed: 11/19/18 19:21> Subjective Follow up in office in 2 weeks. Objective - Vital Signs Vital signs: Vital Signs Temp 98.2 F 11/19/18 07:30 Pulse 62 11/19/18 07:30 Resp 16 11/19/18 07:30 BP 156/73 11/19/18 07:30 Pulse Ox 99 11/19/18 07:30 Intake & Output 11/19/18 11/19/18 11/20/18 06:59 18:59 06:59 Intake Total 900 1148 Balance 900 1148 Intake: Intake, IV Titration 900 550 Amount Ampicillin-Sulbactam 3 gm 100 In Sodium Chloride 0.9% 100 ml @ 200 mls/hr IVPB Q6H IRAJ Rx#:[id number] Sodium Chloride 0.9% 1, 800 550 000 ml @ 100 mls/hr IV . Q10H IRAJ Rx#:[id number] Oral 598 Other: Voiding Method Toilet # Voids 2 - Labs CBC & Chem 7: 11/18/18 06:25 11/18/18 06:25 Assessment and Plan (1) Perforated sigmoid colon Status: Acute Code(s): K63.1 - PERFORATION OF INTESTINE (NONTRAUMATIC) SNOMED Code(s): 543004192 (2) Abscess of sigmoid colon due to diverticulitis Status: Acute Code(s): K57.20 - DVTRCLI OF LG INT W PERFORATION AND ABSCESS W/ O BLEEDING SNOMED Code(s): 5929470370566069 (3) Left lower quadrant pain Status: Acute Code(s): R10.32 - LEFT LOWER QUADRANT PAIN SNOMED Code(s): 692000631 (4) Tobacco abuse Status: Acute Code(s): Z72.0 - TOBACCO USE SNOMED Code(s): 165770317 (5) Morbid obesity due to excess calories Status: Acute Code(s): E66.01 - MORBID (SEVERE) OBESITY DUE TO EXCESS CALORIES SNOMED Code(s): 532112817 (6) BMI 35.0-35.9,adult Status: Acute Code(s): Z68.35 - BODY MASS INDEX (BMI) 35.0-35.9, ADULT SNOMED Code(s): 986034720 (7) Hypertensive heart disease Status: Acute Code(s): I11.9 - HYPERTENSIVE HEART DISEASE WITHOUT HEART FAILURE SNOMED Code(s): 37869357
--- NOTE | 2018-11-19 12:24 | P.DS ---
Providers Date of admission: 11/17/18 02:06 Expected date of discharge: 11/19/18 Attending physician: Genie Pantoja Consults: 11/17/18 02:06 Consult Physician Routine Consulting Provider: Diane Bonner Consult Reason/Comments: ticitis Do you want consulting provider notified?: Yes Primary care physician: [facility] Course: Final Diagnoses: -Sigmoid diverticulitis with peridiverticular abscess. -Hypertension. -stress related gastritis -nicotine abuse: Counseling provided Hospital Course:53-year-old female came in with compensative left lower quadrant abdominal pain sharp in nature found to have sigmoid diverticulitis pain nonradiating and not associated with diarrhea constipation or Nausea vomiting. Patient also has a 2.5 cm irregular fluid collection in the lateral wall of the sigmoid colon consistent with peridiverticular abscess because of general surgery was consulted patient was started on Unasyn which will be continued.she is comparing of epigastric discomfort probably secondary to hospitalization related stress ulcerations or gastritis and patient is already on Protonix. 11/18/2018 continues on IV antibiotics. afebrile, normal WBC. Denies abdominal pain, passing flatus, no bowel movement. Reports feeling hungry. Diet has not been advanced to clear liquids as per surgery, denies chest pain, palpitations or shortness of breath. Ambulating in room, denies lightheadedness dizziness or focal deficits. 11/19/2018 tolerating low fiber diet, positive bowel movement. Denies abdominal pain. Ambulating without difficulty. Denies lightheadedness dizziness or focal deficits. Denies chest pain, palpitations or shortness of breath. Cleared by surgery for discharge with the recommended colonoscopy in 8 weeks. Patient is being discharged home in stable condition with guarded prognosis. Exam GENERAL: alert and oriented x3, no acute distress. CARDIOVASCULAR: S1 and S2 present. No murmurs, rubs, or gallops. PULMONARY: Chest is clear to auscultation, no wheezing or crackles. ABDOMEN: Soft, nondistended, nontender, positive bowel sounds. No palpable organomegaly. NEUROLOGICAL: Gross neurological examination did not reveal any focal deficits. The impression and plan of care has been dictated as directed. : I performed a history and examination of this patient, discussed the same with the dictator. I agree with the dictator's note ,documented as a scribe. Any additional findings or plans will be noted. Time taken: 35 minutes Patient Condition at Discharge: Stable Plan - Discharge Summary New Discharge Prescriptions: New Amoxic-Pot Clav 875-125Mg [Augmentin 875-125] 1 tab PO Q12HR #20 tablet Omeprazole [PriLOSEC] 20 mg PO AC-BID #28 cap Continue Losartan/Hydrochlorothiazide [Losartan-Hctz 100-12.5 mg Tab] 1 tab PO DAILY Cetirizine HCl [Zyrtec] 10 mg PO DAILY PRN PRN Reason: Allergy Symptoms Discharge Medication List Cetirizine HCl [Zyrtec] 10 mg PO DAILY PRN 11/17/18 [History] Losartan/Hydrochlorothiazide [Losartan-Hctz 100-12.5 mg Tab] 1 tab PO DAILY 12/31 [History] Amoxic-Pot Clav 875-125Mg [Augmentin 875-125] 1 tab PO Q12HR #20 tablet [Rx] Omeprazole [PriLOSEC] 20 mg PO AC-BID #28 cap 11/19/18 [Rx] Follow up Appointment(s)/Referral(s): Tk Patel DO [Primary Care Provider] - 11/19/18 9:45 am Diane Bonner MD [STAFF PHYSICIAN] - 12/03/18 1:00 pm Ambulatory/Diagnostic Orders: Complete Blood Count w/diff [LAB.AMB] Time Frame: 3 Days, Location: None Selected Patient Instructions/Handouts: Diverticulitis (DC), Low Fiber Diet (DC), Diverticulitis Diet (DC) Activity/Diet/Wound Care/Special Instructions: low fiber limit activity until follow up - ambulate daily
== END 2018-11-19 14:50 | disposition home or self-care (01) | DRG 392 ==
LOC: EC 23:33 → 4SSUR 11-17 02:06
PROVIDERS: ADMIT Hospitalist; ATTEND Hospitalist
DX: K57.20 Diverticulitis of large intestine with perforation and abscess without bleeding (principal); E66.01 Morbid (severe) obesity due to excess calories; Z71.6 Tobacco abuse counseling; F17.210 Nicotine dependence, cigarettes, uncomplicated; I11.9 Hypertensive heart disease without heart failure; K29.60 Other gastritis without bleeding; K59.00 Constipation, unspecified; Z68.35 Body mass index [BMI] 35.0-35.9, adult; Z79.899 Other long term (current) drug therapy; Z84.1 Family history of disorders of kidney and ureter; Z82.0 Family history of epilepsy and other diseases of the nervous system
CPT/HCPCS: 36415; 74177; 80048; 80053; 81003; 82150; 83605; 83690; 85025; 85027; 87086; 96361; 96374; 96375; 99285

== ENCOUNTER → 2018-11-25 | Outpatient (CLI) | payer OTHER ==
[2018-11-25 15:58] LABS: Basophils # (A) 0.1 k/uL (0-0.2); Basophils % (A) 1 %; Eosinophils # (A) 0.3 k/uL (0-0.7); Eosinophils % (A) 3 %; HCT 41.4 % (34.0-46.0); HGB 13.7 gm/dL (11.4-16.0); Lymphocytes # (A) 3.7 k/uL (1.0-4.8); Lymphocytes % (A) 45 %; MCH 31.3 pg (25.0-35.0); MCV 94.7 fL (80.0-100.0); Mean Platelet Volume 6.9; Monocytes # (A) 0.5 k/uL (0-1.0); Monocytes % (A) 6 %; Neutrophils # (A) 3.4 k/uL (1.3-7.7); Neutrophils % (A) 43 %; Platelet Count 420 k/uL (150-450); RBC 4.37 m/uL (3.80-5.40); RDW 12.6 % (11.5-15.5); WBC 8.1 k/uL (3.8-10.6)
[2018-11-26 02:22] LABS: Anion Gap 6.3 mmol/L (4.00-12.00); Calcium 9.6 mg/dL (8.7-10.3); Carbon Dioxide 30.7 mmol/L (21.6-31.8); Potassium 4.4 mmol/L (3.5-5.5)
== END ==
LOC: LABWHC1 14:24
PROVIDERS: ATTEND Nurse Practitioner
DX: L02.818 Cutaneous abscess of other sites (principal)
CPT/HCPCS: 36415; 80048; 85025

== ENCOUNTER 2019-10-06 11:10 | Emergency (ER) | payer OTHER ==
[2019-10-06 11:32] VITALS: TEMP 98.2
[2019-10-06] MEDS ORDERED: methylPREDNISolone SOD SUCCI 125 MG/2 ML VIAL IV STA (11:49)
[2019-10-06] MEDS ORDERED: IPRATROPIUM-ALBUTEROL 3 ML NEB INHALATION STA (11:49)
[2019-10-06] MEDS ORDERED: SODIUM CHLORIDE 0.9% 1,000 ML IV STA ×2 (11:49)
--- NOTE | 2019-10-06 12:14 | ED ---
General Adult HPI - General Chief complaint: Upper Respiratory Infection Stated complaint: SOB Time Seen by Provider: 10/06/19 11:38 Source: patient, RN notes reviewed, old records reviewed Mode of arrival: ambulatory Limitations: no limitations - History of Present Illness Initial comments: Naya is an 84-year-old female, former smoker. She states she quit approximately 3 weeks ago when she started to become sick. Patient states that she hasn't having a cough congestion for the past week month. She was treated with azithromycin and albuterol but reports worsening shortness breath and wheezing. Patient states that she has no specific chest pain at this time. She denies any back pain. Patient states that she's had a worsening production of cough. No steroids at this time. - Related Data Home Medications Medication Instructions Recorded Confirmed Cetirizine HCl [Zyrtec] 10 mg PO DAILY PRN 11/17/18 11/17/18 Losartan/Hydrochlorothiazide 1 tab PO DAILY 11/17/18 11/17/18 [Losartan-Hctz 100-12.5 mg Tab] Previous Rx's Medication Instructions Recorded Amoxic-Pot Clav 875-125Mg 1 tab PO Q12HR #20 tablet 11/19/18 [Augmentin 875-125] Omeprazole [PriLOSEC] 20 mg PO AC-BID #28 cap 11/19/18 Ipratropium-Albuterol Nebulize 3 ml INHALATION QID #30 neb 10/06/19 [Duoneb 0.5 mg-3 mg/3 ml Soln] Levofloxacin [Levaquin] 750 mg PO DAILY 3 Days #5 tab 10/06/19 Promethazine/Dextromethorphan 5 ml PO TID #120 ml 10/06/19 [Phenergan DM Syrup] predniSONE 50 mg PO DAILY #5 tablet 10/06/19 Allergies Allergy/AdvReac Type Severity Reaction Status Date / Time No Known Allergies Allergy Verified 10/06/19 11:32 Review of Systems ROS Statement: Those systems with pertinent positive or pertinent negative responses have been documented in the HPI. ROS Other: All systems not noted in ROS Statement are negative. Past Medical History Past Medical History: Hypertension Additional Past Medical History / Comment(s): Heart murmur History of Any Multi-Drug Resistant Organisms: None Reported Past Surgical History: Cholecystectomy Past Psychological History: No Psychological Hx Reported Smoking Status: Former smoker Past Alcohol Use History: Rare Past Drug Use History: None Reported - Past Family History Father Family Medical History: Renal Disease Mother Additional Family Medical History / Comment(s): from ALS General Exam - General Exam Comments Initial Comments: 54-year-old female. Alert and oriented. Limitations: no limitations Eye exam: Present: normal appearance, PERRL, EOMI. Absent: scleral icterus, conjunctival injection, periorbital swelling ENT exam: Present: normal exam, mucous membranes moist Neck exam: Present: normal inspection. Absent: tenderness, meningismus, lymphadenopathy Respiratory exam: Present: normal lung sounds bilaterally, wheezes (Patient has wheezing bilaterally.). Absent: respiratory distress, rales, rhonchi, stridor Cardiovascular Exam: Present: regular rate, normal rhythm, normal heart sounds. Absent: systolic murmur, diastolic murmur, rubs, gallop, clicks GI/Abdominal exam: Present: soft, normal bowel sounds. Absent: distended, tenderness, guarding, rebound, rigid Psychiatric exam: Present: normal affect, normal mood Skin exam: Present: warm, dry, intact, normal color. Absent: rash Course Vital Signs 10/06/19 10/06/19 10/06/19 11:29 12:12 12:30 Temperature 98.2 F Pulse Rate 58 L 64 Respiratory 18 18 Rate Blood Pressure 154/89 O2 Sat by Pulse 99 Oximetry 10/06/19 10/06/19 10/06/19 12:41 12:50 13:00 Temperature Pulse Rate 60 51 L 56 L Respiratory 20 16 Rate Blood Pressure 136/40 136/40 O2 Sat by Pulse 98 99 Oximetry EKG Findings - EKG Comments: EKG Findings:: EKG performed at 1211 shows sinus bradycardia, nonspecific T-wave abnormality. Prolonged QT. Abnormal EKG. Ventricular rate of [address] int erval is 1 5062 Lauren's seconds. QT duration is 82 ms. QTc is 3:30/593 ms. Medical Decision Making - Medical Decision Making Due to female presents today with cough shortness of breath or wheezing. Patient was given double DuoNeb treatment and some improvement as well as IV site Metro. Blood work was reviewed and normal. Chest x-ray is negative for acute process. Discussed Patient has history of COPD and will treat for COPD exacerbation. Due to the recent azithromycin prescription will switch the Patient to Levaquin. Discharged with prednisone and nebulizer. I have DuoNeb and her nebulizer. - Lab Data Result diagrams: 10/06/19 12:09 10/06/19 12:09 Lab Results 10/06/19 10/06/19 10/06/19 Range/Units 12:09 12:09 12:09 WBC 7.1 (3.8-10.6) k/uL RBC 4.40 (3.80-5.40) m/uL Hgb 13.6 (11.4-16.0) gm/dL Hct 40.2 (34.0-46.0) % MCV 91.5 (80.0-100.0) fL MCH 31.0 (25.0-35.0) pg MCHC 33.9 (31.0-37.0) g/dL RDW 12.0 (11.5-15.5) % Plt Count 422 (150-450) k/uL Neutrophils % 53 % Lymphocytes % 35 % Monocytes % 5 % Eosinophils % 4 % Basophils % 1 % Neutrophils # 3.7 (1.3-7.7) k/uL Lymphocytes # 2.5 (1.0-4.8) k/uL Monocytes # 0.4 (0-1.0) k/uL Eosinophils # 0.3 (0-0.7) k/uL Basophils # 0.0 (0-0.2) k/uL PT 10.1 (9.0-12.0) sec INR 0.9 (<1.2) APTT 23.1 (22.0-30.0) sec Sodium 143 (137-145) mmol/L Potassium 3.6 (3.5-5.1) mmol/L Chloride 103 (98-107) mmol/L Carbon Dioxide 29 (22-30) mmol/L Anion Gap 11 mmol/L BUN 11 (7-17) mg/dL Creatinine 1.01 (0.52-1.04) mg/dL Est GFR (CKD-EPI)AfAm 73 (>60 ml/min/1.73 sqM) Est GFR (CKD-EPI)NonAf 63 (>60 ml/min/1.73 sqM) Glucose 99 (74-99) mg/dL Calcium 9.8 (8.4-10.2) mg/dL Magnesium 2.4 H (1.6-2.3) mg/dL Total Bilirubin 0.6 (0.2-1.3) mg/dL AST 36 (14-36) U/L ALT 24 (4-34) U/L Alkaline Phosphatase 69 (38-126) U/L Troponin I (0.000-0.034) ng/mL Total Protein 7.8 (6.3-8.2) g/dL Albumin 4.3 (3.5-5.0) g/dL 10/06/19 Range/Units 12:09 WBC (3.8-10.6) k/uL RBC (3.80-5.40) m/uL Hgb (11.4-16.0) gm/dL Hct (34.0-46.0) % MCV (80.0-100.0) fL MCH (25.0-35.0) pg MCHC (31.0-37.0) g/dL RDW (11.5-15.5) % Plt Count (150-450) k/uL Neutrophils % % Lymphocytes % % Monocytes % % Eosinophils % % Basophils % % Neutrophils # (1.3-7.7) k/uL Lymphocytes # (1.0-4.8) k/uL Monocytes # (0-1.0) k/uL Eosinophils # (0-0.7) k/uL Basophils # (0-0.2) k/uL PT (9.0-12.0) sec INR (<1.2) APTT (22.0-30.0) sec Sodium (137-145) mmol/L Potassium (3.5-5.1) mmol/L Chloride (98-107) mmol/L Carbon Dioxide (22-30) mmol/L Anion Gap mmol/L BUN (7-17) mg/dL Creatinine (0.52-1.04) mg/dL Est GFR (CKD-EPI)AfAm (>60 ml/min/1.73 sqM) Est GFR (CKD-EPI)NonAf (>60 ml/min/1.73 sqM) Glucose (74-99) mg/dL Calcium (8.4-10.2) mg/dL Magnesium (1.6-2.3) mg/dL Total Bilirubin (0.2-1.3) mg/dL AST (14-36) U/L ALT (4-34) U/L Alkaline Phosphatase (38-126) U/L Troponin I <0.012 (0.000-0.034) ng/mL Total Protein (6.3-8.2) g/dL Albumin (3.5-5.0) g/dL - Radiology Data Radiology results: report reviewed Normal chest x-ray Disposition Clinical Impression: Bronchitis Disposition: HOME SELF-CARE Condition: Good Instructions (If sedation given, give patient instructions): Acute Bronchitis (ED), Wheezing (ED) Prescriptions: Ipratropium-Albuterol Nebulize [Duoneb 0.5 mg-3 mg/3 ml Soln] 3 ml INHALATION QID #30 neb Levofloxacin [Levaquin] 750 mg PO DAILY 3 Days #5 tab Promethazine/Dextromethorphan [Phenergan DM Syrup] 5 ml PO TID #120 ml predniSONE 50 mg PO DAILY #5 tablet Is patient prescribed a controlled substance at d/c from ED?: No Referrals: Tk Patel DO [Primary Care Provider] - 1-2 days Time of Disposition: 13:24
[2019-10-06 12:30] LABS: Basophils % (A) 1 %; Eosinophils # (A) 0.3 k/uL (0-0.7); Eosinophils % (A) 4 %; HCT 40.2 % (34.0-46.0); HGB 13.6 gm/dL (11.4-16.0); Lymphocytes # (A) 2.5 k/uL (1.0-4.8); Lymphocytes % (A) 35 %; MCHC 33.9 g/dL (31.0-37.0); MCV 91.5 fL (80.0-100.0); Mean Platelet Volume 7.2; Monocytes # (A) 0.4 k/uL (0-1.0); Monocytes % (A) 5 %; Neutrophils # (A) 3.7 k/uL (1.3-7.7); Neutrophils % (A) 53 %; Platelet Count 422 k/uL (150-450); WBC 7.1 k/uL (3.8-10.6)
--- NOTE | 2019-10-06 12:30 | XR ---
EXAMINATION TYPE: XR chest 2V DATE OF EXAM: 10/06/2019 COMPARISON: NONE HISTORY: Chest pain TECHNIQUE: Frontal and lateral views of the chest are obtained. FINDINGS: There is no focal air space opacity. No evidence for pneumothorax. No pleural effusion. The cardiac silhouette size is within normal limits. The osseous structures are grossly intact. IMPRESSION: 1. No acute cardiopulmonary process.
[2019-10-06 12:39] LABS: Albumin 4.3 g/dL (3.5-5.0); Calcium 9.8 mg/dL (8.4-10.2); Magnesium 2.4 mg/dL (1.6-2.3); Potassium 3.6 mmol/L (3.5-5.1); Total Bilirubin 0.6 mg/dL (0.2-1.3); Total Protein 7.8 g/dL (6.3-8.2)
[2019-10-06 12:49] LABS: INR 0.9 (<1.2); Partial Thromboplastin Time 23.1 sec (22.0-30.0); Prothrombin Time 10.1 sec (9.0-12.0)
[2019-10-06 12:52] VITALS: BP 136/40
[2019-10-06 13:31] VITALS: PULSE 56; RESP 16
== END 2019-10-06 13:37 | disposition home or self-care (01) ==
LOC: EC 11:10
DX: J40 Bronchitis, not specified as acute or chronic (principal); I10 Essential (primary) hypertension; Z79.899 Other long term (current) drug therapy; Z87.891 Personal history of nicotine dependence
CPT/HCPCS: 36415; 94640; 93005; 80053; 83735; 84484; 85025; 85610; 85730; 71046; 99285; 96374; 96361; J2930

== ENCOUNTER → 2020-07-09 | Outpatient (CLI) | payer OTHER ==
--- NOTE | 2020-07-12 08:34 | MM ---
Reason for exam: clinical finding. Last mammogram was performed 3 years and 8 months ago. History: Family history of breast cancer in mother at age 48 and breast cancer in maternal grandmother. Physical Findings: Nurse Summary: 3cm nodule in the right breast at the nipple-6 o'clock (nurse cara). MG 3D Diag Mammo W/Cad TORI Bilateral CC and MLO view(s) were taken. Prior study comparison: October 26, 2016, mammogram. The breast tissue is heterogeneously dense. This may lower the sensitivity of mammography. These results were verbally communicated with the patient and result sheet given to the patient on 07/09/20. ASSESSMENT: Highly suggestive of malignancy, BI-RAD 5 RECOMMENDATION: Surgical consultation of the left breast. Called Dr. Cash's office with mammographic findings and has scheduled an appointment for the patient for 07/16/20 at 11:[address] Anderson. Biopsy schedueled for 07/22/20 at 1:00. PRELIMINARY REPORT CALLED AND FAXED TO DR. ANDERSON ON 07/09/20.
--- NOTE | 2020-07-12 08:35 | USB ---
Reason for exam: clinical finding. History: Family history of breast cancer in mother at age 48 and breast cancer in maternal grandmother. US Breast LT Left complete breast ultrasound includes all four quadrants, the retroareolar region and axilla. Finding demonstrates a 0.5 x 0.3 x 0.6cm cystic lesion at 1 o'clock and a 3.0 x 2.5 x 3.1cm solid, hypoechoic lesion at 6 o'clock. Lymph nodes left axilla intermediate thickening of cortex. These results were verbally communicated with the patient and result sheet given to the patient on 07/09/20. ASSESSMENT: Highly suggestive of malignancy, BI-RAD 5 RECOMMENDATION: Surgical consultation and ultrasound core biopsy of the left breast. Called Dr. Cash's office with mammographic findings and has scheduled an appointment for the patient for 07/16/20 at 11:[address] Anderson. Biopsy schedueled for 07/22/20 at 1:00. PRELIMINARY REPORT CALLED AND FAXED TO DR. ANDERSON ON 07/09/20.
== END | disposition home or self-care (01) ==
LOC: RADMAMWWP 14:58
PROVIDERS: ATTEND Family Medicine
DX: N60.02 Solitary cyst of left breast (principal); N63.20 Unspecified lump in the left breast, unspecified quadrant; R92.8 Other abnormal and inconclusive findings on diagnostic imaging of breast
CPT/HCPCS: 77066; 76641; G0279; 77062

== ENCOUNTER → 2020-07-16 | Outpatient (CLI) | payer OTHER ==
[2020-07-16 12:01] VITALS: BP 135/85; PULSE 75; RESP 16; TEMP 98.6
--- NOTE | 2020-07-16 12:16 | P.GSHP ---
History of Present Illness H&P Date: 07/16/20 Chief Complaint: mass left breast Leonie is a 55 year old female seen in consultation for DR. Cash with a complaint of a mass in her left breast. She states it has been present for several years. It has been increasing in size. It is not painful, it is slightly tender. She had a bilateral mammogram performed on after this an ultrasound was recommended of the left breast. The ultrasound reveals a 3 x 3.1 cm solid lesion at the 6 o'clock position. Lymph nodes in the left axilla had an intermediate thickening of the cortex. Ultrasound core biopsy of the left breast was recommended. She is not complaining of any nipple discharge or skin changes. Family History: mother: breast cancer maternal grandmother: breast cancer sister: breast cancer Hormonal History: menarche: 15 [id number], miscarrage1 tubal1 menopause: 54 BCP: 1 year hormones: none Surgical history: 1. Tubal ligation 2. Tubal 3. Cholecystectomy Medical History: HTN Social History: smoke: 10 cig/day 35 years stopped one year ago alcohol: beer 50oz/week drugs: none - Constitutional Constitutional: Reports sweats - EENT Eyes: denies blurred vision, denies pain Ears: bilateral: tinnitus, deny: decreased hearing Ears, nose, mouth and throat: Denies headache, Denies sore throat - Breasts Breasts: bilateral: as per HPI - Cardiovascular Cardiovascular: Reports high blood pressure, Denies chest pain, Denies shortness of breath - Respiratory Comment: bronchitis - Gastrointestinal Gastrointestinal: Denies abdominal pain, Denies diarrhea, Denies nausea, Denies vomiting - Genitourinary (Female) Genitourinary: Denies dysuria, Denies hematuria - Menstruation Menstruation: Reports postmenopausal - Musculoskeletal Comment: bursitis left shoulder - Integumentary Integumentary: Denies pruritus, Denies rash - Neurological Neurological: Denies numbness, Denies weakness - Psychiatric Psychiatric: Denies anxiety, Denies depression - Endocrine Endocrine: Denies fatigue, Denies weight change - Hematologic/Lymphatic Comment: none - Allergic/Immunologic Allergic/Immunologic: Reports seasonal allergies Past Medical History Past Medical History: Hypertension Additional Past Medical History / Comment(s): Heart murmur, bronchitis, diverticulitis History of Any Multi-Drug Resistant Organisms: None Reported Past Surgical History: Cholecystectomy Past Psychological History: No Psychological Hx Reported Past Alcohol Use History: Occasional Past Drug Use History: None Reported - Past Family History Father Family Medical History: Renal Disease Mother Additional Family Medical History / Comment(s): from ALS Medications and Allergies Home Medications Medication Instructions Recorded Confirmed Type Cetirizine HCl [Zyrtec] 10 mg PO DAILY PRN 11/17/18 07/16/20 History Valsartan/Hydrochlorothiazide 1 each PO DAILY 07/15/20 07/16/20 History [Valsartan-Hctz 160-12.5 mg Tab] Allergies Allergy/AdvReac Type Severity Reaction Status Date / Time No Known Allergies Allergy Verified 07/15/20 15:20 Surgical - Exam BMI 39 - General obese - Eyes normal ocular movement - ENT no hearing loss, no congestion - Neck no masses, trachea midline - Respiratory normal respiratory effort, clear to auscultation - Cardiovascular Rhythm: regular Heart Sounds: normal: S1, S2 - Abdomen Abdomen: soft, non tender, no guarding, no rigid, no rebound - Integumentary normal turgor - Neurologic no disoriented, no combative - Musculoskeletal normal gait, normal posture - Psychiatric oriented to time, oriented to person, oriented to place, speech is normal, memory intact breast exam: BRA: 42C inspection: skin retraction left breast in the inferior aspect of the breast palpation: right breast: POSITIONAL exam fibrocystic changes, no dominant masses or nodules of concern Right axilla: Shotty adenopathy Left breast: approximately 8 x 7 cm mass at the 6 o'clock position of the left breast causing skin retraction Left axilla: Shotty adenopathy Results Mammogram and ultrasound results reviewed; we will review this with radiology Assessment and Plan Assessment: Impression: 1. Left breast Mass. 2. Abnormal left breast mammogram and ultrasound 3. Hypertension Plan: 1. Core biopsy left breast 2. Follow-up after core biopsy I discussed the risks and benefits with the patient. She understands risks may include bleeding, infection, reaction to the anesthetic. May also includes sampling Valdemar which additional biopsy may be necessary. She understands and wishes to proceed. She is aware that this is highly suggestive of cancer. And she is interested in getting treatment started to avoid this from going any further. Cc: Dr. Cash encounter 30 minutes, > 50% of time in planning and counselling
== END | disposition home or self-care (01) ==
LOC: WWCWWP 11:32
PROVIDERS: ATTEND Surgery
DX: Z53.9 Procedure and treatment not carried out, unspecified reason (principal)

== ENCOUNTER → 2020-07-22 | Day surgery (SDC) | payer OTHER ==
[2020-07-22 12:31] VITALS: RESP 16
[2020-07-22 15:01] VITALS: BP 159/94; PULSE 71; TEMP 98
--- NOTE | 2020-07-22 17:05 | USB ---
EXAMINATION TYPE: US biopsy breast VAD LT DATE OF EXAM: 07/22/2020 CLINICAL HISTORY: R92.8 ABN MAMMO. TECHNIQUE: Ultrasound guided vaccuum assisted core biopsy of left breast. COMPARISON: 07/09/2020 FINDINGS: The ultrasound guided core biopsy procedure was explained to the patient. The risks, benef its, alternatives were discussed. An informed consent was then obtained. Timeout was performed. The patient was placed in supine positioning for imaging and for the procedure. The overlying skin w as prepped with betadine and sterilely draped in usual sterile fashion. Lidocaine 1% was used as ane sthetic into the skin and deeper breast tissue up to area of concern in the breast. A small skin christin k was made with surgical scalpel. Initial attempts for biopsy elicited some discomfort from the vinita ent. The patient was reanesthetized for the procedure with good results. Avoidance of the large vascu lar structures within this lesion was performed with color flow sonography. This may be approach some what difficult to position the biopsy device. Under ultrasound guidance, a 12-gauge vacuum assisted biopsy device was used to obtain 4 core samples . At the request of the patient and with essentially no reduction in lesion size following biopsy no clip was placed. Good hemostasis was obtained with direct pressure. Discharge instructions were discussed with the spenser thao. The patient will follow up with the referring physician for results. Postprocedure mammogram: No postprocedure mammogram was performed at this time. The patient tolerated the procedure well without any immediate complication. The patient was dischar ged to home in stable condition. IMPRESSION: 1. Successful ultrasound guided biopsy left breast. Recommendations: 1. Recommendations are pending pathology results.
== END ==
LOC: RADUSWWP 11:55
PROVIDERS: ATTEND Surgery
DX: C50.912 Malignant neoplasm of unspecified site of left female breast (principal); Z17.0 Estrogen receptor positive status [ER+]
CPT/HCPCS: 88305; 88342; 88341; 19083; J2001

== ENCOUNTER → 2020-07-30 | Outpatient (CLI) | payer OTHER ==
[2020-07-30 12:33] VITALS: BP 131/87; PULSE 84; RESP 18; TEMP 98.4
--- NOTE | 2020-07-30 13:10 | P.PN ---
Subjective Progress Note Date: 07/30/20 Principal diagnosis: Left breast cancer Leonie is a 55 year old female seen in consultation for DR. Cash with a complaint of a mass in her left breast. She states it has been present for several years. It has been increasing in size. It is not painful, it is slightly tender. [place] [id number] after this an ultrasound was recommended of the left breast. The ultrasound reveals a 3 x 3.1 cm solid lesion at the 6 o'clock position. Lymph nodes in the left axilla had an intermediate thickening of the cortex. Ultrasound core biopsy of the left breast was recommended. She is not complaining of any nipple discharge or skin changes. The patient is [place] [id number]. 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 This is ER/OK positive and HER-2 negative. The patient tolerated the procedure without difficulty. She was seen in discussion was had regarding the results. It is recommended she see medical oncology for possible neoadjuvant chemot herapy. Additionally we've had a discussion regarding possible genetic testing. Her family history is very strong for breast cancer with the mother, maternal grandmother, and sister with breast cancer. If she were to be BRCA1 positive we would strongly consider bilateral mastectomies. Depending on actual tumor size this appears to be a stage I or II A. T2 or 3, N0M0ER+OK+Her2-G2 Family History: mother: breast cancer maternal grandmother: breast cancer sister: breast cancer Hormonal History: menarche: 15 [id number], miscarrage1 tubal1 menopause: 54 BCP: 1 year hormones: none Surgical history: 1. Tubal ligation 2. Tubal 3. Cholecystectomy Medical History: HTN Social History: smoke: 10 cig/day 35 years stopped one year ago alcohol: beer 50oz/week drugs: none - Constitutional Constitutional: Reports sweats - EENT Eyes: denies blurred vision, denies pain Ears: bilateral: tinnitus, deny: decreased hearing Ears, nose, mouth and throat: Denies headache, Denies sore throat - Breasts Breasts: bilateral: as per HPI - Cardiovascular Cardiovascular: Reports high blood pressure, Denies chest pain, Denies shortness of breath - Respiratory Comment: bronchitis - Gastrointestinal Gastrointestinal: Denies abdominal pain, Denies diarrhea, Denies nausea, Denies vomiting - Genitourinary (Female) Genitourinary: Denies dysuria, Denies hematuria - Menstruation Menstruation: Reports postmenopausal - Musculoskeletal Comment: bursitis left shoulder - Integumentary Integumentary: Denies pruritus, Denies rash - Neurological Neurological: Denies numbness, Denies weakness - Psychiatric Psychiatric: Denies anxiety, Denies depression - Endocrine Endocrine: Denies fatigue, Denies weight change - Hematologic/Lymphatic Comment: none - Allergic/Immunologic Allergic/Immunologic: Reports seasonal allergies Objective - Vital Signs Vital signs: Vital Signs Temp 98.4 F 07/30/20 12:29 Pulse 84 07/30/20 12:29 Resp 18 07/30/20 12:29 BP 131/87 07/30/20 12:29 Pulse Ox 98 07/30/20 12:29 Intake & Output 07/29/20 07/30/20 07/30/20 18:59 06:59 18:59 Weight 103.419 kg Assessment and Plan Assessment: Impression: 1. left breast cancer 2. strong family history of breast cancer 3. HTN Plan: 1. present at tumor board 2. appointment with medical oncology 3. genetic testing CC: Dr. Cash We have had a lengthy discussion regarding possible treatment options. She understands risks and benefits. At this time we are recommending that she see medical oncology for probable preoperative neoadjuvant chemotherapy.
== END | disposition home or self-care (01) ==
LOC: WWCWWP 11:49
PROVIDERS: ATTEND Surgery
DX: Z53.9 Procedure and treatment not carried out, unspecified reason (principal)

== ENCOUNTER → 2020-08-13 | Outpatient (CLI) | payer OTHER ==
--- NOTE | 2020-08-16 07:05 | BMR ---
EXAMINATION TYPE: MR breast BILAT wo/w con DATE OF EXAM: 08/13/2020 COMPARISON: 3-D bilateral breast mammogram July 09, 2020 BI-RADS 5. Left breast ultrasound Septe [id number] BI-RADS 5. HISTORY: Left breast cancer invasive moderately differentiated ductal carcinoma grade 2 on ultrasound -guided core biopsy July 22, 2020. TECHNIQUE: A series of fat and water weighted images in the long and short axis views of both breasts are obtained in conjunction with dynamic contrast MRI with subtraction technique. The patient was i njected with 10 mL intravenous Gadavist gadolinium contrast. Three-dimensional and additional postp rocessing imaging is created on independent workstation and reviewed during official interpretation o f this study. FINDINGS: Exam noticed suboptimal as patient unable to complete last few sequences including delayed dynamic postcontrast axial images. Heterogeneously dense fibroglandular tissue bilaterally is redemonstrated. T2 and STIR weighted image s show elongated thin-walled cysts in the posterior medial aspect right breast measuring approximatel y 13 x 4 mm axial image 23. Additional smaller scattered cysts thin-walled cysts are present bilatera lly. T1-weighted images show mildly suspicious left axillary lymph node measures 14 x 7 mm axial imag e 78, slightly larger right axillary lymph node noted axial image 74 but this has better visualized c entral fatty hilum. No suspicious fat containing masses. Postcontrast images show mild nodular granul ar enhancement slightly more asymmetrically prominent on the left versus right breast. With regards to the right breast. No suspicious skin thickening is seen. No pathologic enhancement or enhancing masses are identified. Chest wall is intact. With regards to the left breast corresponding to mammogram and ultrasound there is deformity with enh ancing spiculated mass centered in the middle depth inferior portion causing nipple retraction measur ing roughly 7.7 cm AP diameter by 3.6 cm transversely extending to anterior skin surface and nipple w ith retraction. There is some posterior linear enhancement to the pectoralis muscle axial image 218 f or reference. No definitive additional suspicious enhancing mass in the left breast. No biopsy clip n oted. IMPRESSION: Large biopsy-proven neoplasm inferior portion of left breast. No MRI evidence for invasiv e malignancy in the right breast. BI-RADS 2 benign findings right breast BI-RADS 6 biopsy-proven carcinoma left breast Recommendation: Appropriate surgical and oncologic management.
== END | disposition home or self-care (01) ==
LOC: RADMRIMAIN 15:56
PROVIDERS: ATTEND Internal Medicine Hematology & Oncology
DX: C50.112 Malignant neoplasm of central portion of left female breast (principal)
CPT/HCPCS: C8937; C8908; A9585; 77049

== ENCOUNTER → 2020-11-05 | Outpatient (CLI) | payer OTHER ==
[2020-11-05 14:17] VITALS: BP 117/77; PULSE 63; RESP 18; TEMP 98.5
--- NOTE | 2020-11-05 14:28 | P.PN ---
Subjective Progress Note Date: 11/05/20 Principal diagnosis: left breast cancer on verzenio/femara stage II; [id number]+AR+Her2-G2 Left breast cancer Leonie is a 55 year old female seen in consultation for DR. Cash with a complaint of a mass in her left breast. She states it has been present for several years. It has been increasing in size. It is not painful, it is slightly tender. She had a bilateral mammogram performed on after this an ultrasound was recommended of the left breast. The ultrasound reveals a 3 x 3.1 cm solid lesion at the 6 o'clock position. Lymph nodes in the left axilla had an intermediate thickening of the cortex. Ultrasound core biopsy of the left breast was recommended. She is not complaining of any nipple discharge or skin changes. The patient is status post ultrasound-guided core biopsy on . 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 This is ER/AR positive and HER-2 negative. The patient tolerated the procedure without difficulty. She was seen and discussion was had regarding the results. It was recommended she see medical oncology for possible neoadjuvant chemotherapy. Additionally we've had a discussion regarding possible genetic testing. Her family history is very strong for breast cancer with the mother, maternal grandmother, and sister with breast cancer. If she were to be BRCA1 positive we would strongly consider bilateral mastectomies. Depending on actual tumor size this appears to be a stage I or II A. T2 or 3, N0M0ER+AR+Her2-G2 She is not taking any chemotherapy but is taking neoadjuvant hormonal therapy. She is taking verzenio and Femora. She is doing well with this and has been on it for about one month. She initially had diarrhea but this is improved. Her Oncotype DX was 20%. She had a breast MRI done on which was benign findings in the right breast, biopsy-proven cancer in the left breast on the left breast the area of concern was 7.7 cm in size by 3.6 cm She did have genetic testing done and this was negative for the BRACA gene. Family History: mother: breast cancer maternal grandmother: breast cancer sister: breast cancer Hormonal History: menarche: 15 [id number], miscarrage1 tubal1 menopause: 54 BCP: 1 year hormones: none Surgical history: 1. Tubal ligation 2. Tubal 3. Cholecystectomy Medical History: HTN Social History: smoke: 10 cig/day 35 years; stopped in August stopped one year ago alcohol: beer 50oz/week drugs: none - Constitutional Constitutional: Reports sweats - EENT Eyes: denies blurred vision, denies pain Ears: bilateral: tinnitus, deny: decreased hearing Ears, nose, mouth and throat: Denies headache, Denies sore throat - Breasts Breasts: bilateral: as per HPI - Cardiovascular Cardiovascular: Reports high blood pressure, Denies chest pain, Denies shortness of breath - Respiratory Comment: bronchitis - Gastrointestinal Gastrointestinal: Denies abdominal pain, Denies diarrhea, Denies nausea, Denies vomiting - Genitourinary (Female) Genitourinary: Denies dysuria, Denies hematuria - Menstruation Menstruation: Reports postmenopausal - Musculoskeletal Comment: bursitis left shoulder - Integumentary Integumentary: Denies pruritus, Denies rash - Neurological Neurological: Denies numbness, Denies weakness - Psychiatric Psychiatric: Denies anxiety, Denies depression - Endocrine Endocrine: Denies fatigue, Denies weight change - Hematologic/Lymphatic Comment: none - Allergic/Immunologic Allergic/Immunologic: Reports seasonal allergies Objective - Exam BMI 38.8 - Constitutional General appearance: Present: obese - EENT Eyes: Present: EOMI ENT: Present: hearing grossly normal - Neck Neck: Present: normal ROM - Cardiovascular Rhythm: regular Heart sounds: normal: S1, S2 - Gastrointestinal General gastrointestinal: Present: normal bowel sounds, soft - Integumentary Integumentary: Present: normal turgor - Musculoskeletal Musculoskeletal: Present: gait normal - Psychiatric Psychiatric: Present: A&O x's 3 - Additional findings Additional findings: Breast Exam: BRA: 44C inspection: right breast grade 3 ptosis; left breast skin dimpling palpation: Right breast: Multi-positional exam fibrocystic changes no dominant masses or nodules of concern Right axilla: No adenopathy of concern Left breast: Skin tethering at the 6 o'clock position mass approximately 7 x 4 cm in size but is not fixed to the chest wall no other masses Left axilla: No adenopathy of concern Assessment and Plan Assessment: Impression: 1. Stage IIB left breast invasive ductal carcinoma 2. Patient on hormonal neoadjuvant therapy 3. Patient doing well tolerating therapy without difficulty Plan: 1. Continue neoadjuvant hormone therapy 2. Follow-up. 2 months CC: DR. Cash encounter 20 minutes, > 50% of time in planning and counselling
== END | disposition home or self-care (01) ==
LOC: WWCWWP 13:56
PROVIDERS: ATTEND Surgery
DX: Z53.9 Procedure and treatment not carried out, unspecified reason (principal)

== ENCOUNTER → 2020-12-13 | Outpatient (CLI) | payer OTHER ==
--- NOTE | 2020-12-16 06:34 | BMR ---
EXAMINATION TYPE: MR breast BILAT wo/w con DATE OF EXAM: 12/13/2020 COMPARISON: Bilateral breast MRI August 13, 2020 HISTORY: Left breast cancer invasive moderately differentiated ductal carcinoma grade 2 on ultrasound -guided core biopsy July 22, 2020. F/U after treatment. TECHNIQUE: A series of fat and water weighted images in the long and short axis views of both breasts are obtained in conjunction with dynamic contrast MRI with subtraction technique. The patient was i njected with 10 mL intravenous Gadavist gadolinium contrast. Three-dimensional and additional postp rocessing imaging is created on independent workstation and reviewed during official interpretation o f this study. FINDINGS: Exam noticed suboptimal as patient unable to complete last few sequences including delayed dynamic postcontrast axial images. Heterogeneously dense fibroglandular tissue bilaterally is redemonstrated greatest in the anterior an d middle depths. T2 and STIR weighted images redemonstrate elongated thin-walled cyst in the posterio r medial aspect right breast measuring approximately 13 x 4 mm axial image 23. Additional punctate th in-walled cysts are redemonstrated bilaterally and background dense tissue. T1-weighted images redemo nstrate subcentimeter bilateral axillary lymph nodes. Lymph nodes slightly more numerous and larger i n size in left axilla versus right axilla but no definitive abnormal adenopathy identified. Postcontr ast images show minimal glanular enhancement bilaterally on current study. Delayed dynamic imaging sh ows no suspicious intramammary adenopathy. With regards to the right breast. No suspicious skin thickening is seen. No new pathologic enhancemen t or enhancing masses are identified. Chest wall is intact. With regards to the left breast there is persistent deformity and distortion anterior inferior aspect left breast with nipple retraction. There is persistent spiculated enhancing mass centered in the mi ddle depth inferior portion causing nipple retraction measuring roughly 5.0 [address] AP diameter current st udy by 2.0 cm transversely with some sparing of abnormal enhancement extending to anterior skin surfa ce on current study. (Prior measurement 7.7 x 3.6 cm). Computer measures 4.6 cm of size of lesion in craniocaudal dimension. There is no persistent posterior linear enhancement to the pectoralis muscle on current study. Current study shows predominantly gradual enhancement with some smaller areas of pl ateau type enhancement. No new enhancing masses or suspicious pathologic enhancement. IMPRESSION: Persistent biopsy-proven neoplasm inferior portion of left breast with distortion and nip ple retraction. Positive treatment response as detailed above. No MRI evidence for new malignancy in either breast. BI-RADS 2 benign findings right breast BI-RADS 6 biopsy-proven carcinoma left breast Recommendation: Appropriate surgical and oncologic management.
== END ==
LOC: RADMRIMAIN 13:14
PROVIDERS: ATTEND Internal Medicine Hematology & Oncology
DX: C50.112 Malignant neoplasm of central portion of left female breast (principal); N64.53 Retraction of nipple; N64.89 Other specified disorders of breast
CPT/HCPCS: C8937; C8908; A9585; 77049

== ENCOUNTER → 2021-01-06 | Outpatient (CLI) | payer OTHER ==
[2021-01-06 11:53] VITALS: BP 145/84; PULSE 92; RESP 18; TEMP 98.3
--- NOTE | 2021-01-06 12:36 | P.PN ---
Subjective Progress Note Date: 01/06/21 Principal diagnosis: left breast cancer left breast cancer on verzenio/femara stage II; [id number]+ID+Her2-G2 Left breast cancer Leonie is a 55 year old female seen in consultation for DR. Cash with a complaint of a mass in her left breast. She states it has been present for several years. It has been increasing in size. It is not painful, it is slightly tender. She had a bilateral mammogram performed on after this an ultrasound was recommended of the left breast. The ultrasound reveals a 3 x 3.1 cm solid lesion at the 6 o'clock position. Lymph nodes in the left axilla had an intermediate thickening of the cortex. Ultrasound core biopsy of the left breast was recommended. She is not complaining of any nipple discharge or skin changes. The patient is status post ultrasound-guided core biopsy on . 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 This is ER/ID positive and HER-2 negative. The patient tolerated the procedure without difficulty. She was seen and discussion was had regarding the results. It was recommended she see medical oncology for possible neoadjuvant chemotherapy. Additionally we've had a discussion regarding possible genetic testing. Her family history is very strong for breast cancer with the mother, maternal grandmother, and sister with breast cancer. If she were to be BRCA1 positive we would strongly consider bilateral mastectomies. Depending on actual tumor size this appears to be a stage I or II A. T2 or 3, [id number]+ID+Her2-G2 She is not taking any chemotherapy but is taking neoadjuvant hormonal therapy. She is taking verzenio and Femora. She is doing well with this and has been on it for about one month. She initially had diarrhea but this is improved. Her Oncotype DX was 20%. She had a breast MRI done on which was benign findings in the right breast, biopsy-proven cancer in the left breast on the left breast the area of concern was 7.7 cm in size by 3.6 cm Repeat MRI done on 12-13-20; shows left breast tumor decreased in size from 7.7 cm by 3.6cm to 5 by 2 cm. She did have genetic testing done and this was negative for the BRACA gene. Family History: mother: breast cancer maternal grandmother: breast cancer sister: breast cancer Hormonal History: menarche: 15 [id number], miscarrage1 tubal1 menopause: 54 BCP: 1 year hormones: none Surgical history: 1. Tubal ligation 2. Tubal 3. Cholecystectomy Medical History: HTN Social History: smoke: 10 cig/day 35 years; stopped in August stopped one year ago alcohol: beer 50oz/week drugs: none Objective - Vital Signs Vital signs: Vital Signs Temp 98.3 F 01/06/21 11:49 Pulse 92 01/06/21 11:49 Resp 18 01/06/21 11:49 BP 145/84 01/06/21 11:49 Pulse Ox 100 01/06/21 11:49 Intake & Output 01/05/21 01/06/21 01/06/21 18:59 06:59 18:59 Weight 102.512 kg - Exam BMI 40 - Constitutional General appearance: Present: average body habitus - EENT Eyes: Present: EOMI ENT: Present: hearing grossly normal - Neck Neck: Present: normal ROM - Respiratory Respiratory: bilateral: CTA - Cardiovascular Rhythm: regular Heart sounds: normal: S1, S2 - Gastrointestinal General gastrointestinal: Present: soft - Integumentary Integumentary: Present: normal turgor - Musculoskeletal Musculoskeletal: Present: gait normal - Psychiatric Psychiatric: Present: A&O x's 3, appropriate affect, intact judgment & insight - Additional findings Additional findings: Breast exam: BRA: sports BRA: medium inspection: Right breast grade 3 ptosis, left breast decreased nipple inversion, dimpling remains at the inferior aspect Palpation: Right breast: Multiple positional exam fibrocystic changes, no dominant masses or nodules of concern Right axilla: No adenopathy of concern Left breast: Multi-positional exam persistent mass in the 6 o'clock position remains approximately 6 cm in size, no other masses or nodules of concern Left axilla: No adenopathy of concern Assessment and Plan Assessment: Impression: 1. Hypertension 2. Patient on verzenio/femara with decrease in size of the tumor noted 3. MRI of the breast performed on 3120 reveals 13 x 4 mm thin-walled cyst in the right breast, in the left breast a 5 x 2 cm mass prior measurement of 7.7 x 3.6 cm. Computed measures 4.6 cm in size of mass in cranial caudal dimension. Plan: 1. continue present therapy; Verzenio/femara 2. follow up in 2 months 3. consider OR in 2 months; about 6 months of neoadjuvant Cc: Dr. Shailesh Olea encounter 25 minutes time spent and physical examination, reviewing medical records, and counseling.
== END ==
LOC: WWCWWP 11:42
PROVIDERS: ATTEND Surgery
DX: C50.912 Malignant neoplasm of unspecified site of left female breast (principal); Z17.0 Estrogen receptor positive status [ER+]; I10 Essential (primary) hypertension; N60.11 Diffuse cystic mastopathy of right breast; N63.25 Unspecified lump in the left breast, overlapping quadrants; Z80.3 Family history of malignant neoplasm of breast; F17.210 Nicotine dependence, cigarettes, uncomplicated

== ENCOUNTER → 2021-02-25 | Outpatient (CLI) | payer OTHER ==
--- NOTE | 2021-03-01 07:37 | BMR ---
EXAMINATION TYPE: MR breast BILAT wo/w con DATE OF EXAM: 02/25/2021 COMPARISON: Prior MRI bilateral breast December 13, 2020 and older studies. HISTORY: Breast CA leftside diagnosed July 2020 invasive ductal carcinoma. TECHNIQUE: A series of fat and water weighted images in the long and short axis views of both breasts are obtained in conjunction with dynamic contrast MRI with subtraction technique. The patient was i njected with 10cc mL intravenous Gadavist gadolinium contrast. Three-dimensional and additional pos tprocessing imaging is created on independent workstation and reviewed during official interpretation of this study. Findings: Heterogeneously dense fibroglandular tissue bilaterally is redemonstrated greatest in the anterior an d middle depths of both breasts. T2 and STIR weighted images redemonstrate stable elongated thin-wall ed cyst in the posterior medial aspect right breast measuring approximately 13 x 4 mm axial image 24 on the current study. Additional punctate thin-walled cysts are redemonstrated bilaterally on backgro und dense tissue. Coronal T2 sequences redemonstrate subcentimeter bilateral axillary lymph nodes. No new or enlarging lymph nodes. Lymph nodes slightly more numerous and larger in size in left axilla v ersus right axilla but no definitive change from most recent MRI. Postcontrast images show similar mi nimal background glanular enhancement bilaterally on current study. Delayed dynamic imaging shows no suspicious no internal mammary adenopathy. With regards to the right breast. No suspicious skin thickening is seen. No new pathologic enhancemen t or enhancing masses are identified. Chest wall is intact. With regards to the left breast there is persistent deformity and distortion anterior inferior aspect left breast with nipple retraction. There is persistent spiculated enhancing mass centered in the mi ddle depth inferior portion causing nipple retraction measuring roughly 4.0 cm transversely by 2.5 cm AP diameter transversely with persistent sparing of abnormal enhancement extending to anterior skin surface on current study. Computer has difficulty actually measuring mass. There is no recurrent pos terior linear enhancement to the pectoralis muscle on current study. Current study shows predominantl y gradual enhancement with few smaller areas of plateau type enhancement. Overall findings fairly sim ilar to most recent MRI. No new enhancing masses or suspicious pathologic enhancement. IMPRESSION: Persistent biopsy-proven neoplasm inferior portion of left breast with distortion and nip ple retraction. Grossly no significant change from most recent MRI. No MRI evidence for new malignanc y in either breast. BI-RADS 2 benign findings right breast BI-RADS 6 biopsy-proven carcinoma left breast Recommendation: Appropriate surgical and oncologic management.
== END | disposition home or self-care (01) ==
LOC: RADMRIMAIN 11:32
PROVIDERS: ATTEND Internal Medicine Hematology & Oncology
DX: C50.912 Malignant neoplasm of unspecified site of left female breast (principal); N64.53 Retraction of nipple; N64.89 Other specified disorders of breast
CPT/HCPCS: C8937; C8908; A9585; 77049

== ENCOUNTER 2022-04-08 09:20 | Inpatient (IN) | payer OTHER ==
[2022-04-08] MEDS ORDERED: ACETAMINOPHEN TAB 500 MG TAB PO STA (09:44)
--- NOTE | 2022-04-08 09:47 | ED ---
General Adult HPI - General Chief complaint: Abdominal Pain Stated complaint: Abd pain Time Seen by Provider: 04/08/22 09:34 Source: patient Mode of arrival: ambulatory Limitations: no limitations - History of Present Illness Initial comments: Dictation was produced using [employer] dictation software. please excuse any grammatical, word or spelling errors. Chief Complaint: 56-year-old female presents to the emergency department for sev eral days of abdominal pain History of Present Illness: Patient is 56-year-old female she presents to emergency department for left lower quadrant abdominal pain times approximately 5-7 days. Patient states she has history of diverticulitis. Last diverticulitis episode was 2 years ago. She states that she's being things that she knows she is not supposed bleeding including jalapenos with seeds and popcorn. Patient noticed that her left lower quadrant has been progressively hurting worse. She does feel like she has a fever however has not checked her temperature at home. Patient denies any nausea. She does report associated urinary symptoms including frequency and dysuria. She also reports cloudiness in her urine. Denies any flank tenderness. The ROS documented in this emergency department record has been reviewed and confirmed by me. Those systems with pertinent positive or negative responses have been documented in the HPI. All other systems are other negative and/or noncontributory. PHYSICAL EXAM: General Impression: Alert and oriented x3, not in acute distress HEENT: Normocephalic atraumatic, extra-ocular movements intact, pupils equal and reactive to light bilaterally, mucous membranes moist. Cardiovascular: Heart regular rate and rhythm Chest: Able to complete full sentences, no retractions, no tachypnea Abdomen: abdomen soft, palpatory tenderness to the left lower quadrant, non- distended, no organomegaly Musculoskeletal: Pulses present and equal in all extremities, no peripheral edema, no CVA tenderness Motor: no focal deficits noted Neurological: CN II-XII grossly intact, no focal motor or sensory deficits noted Skin: Intact with no visualized rashes Psych: Normal affect and mood ED course: Patient 56-year-old male presents to the emergency department for left lower quadrant abdominal pain. Patient having urinary symptoms and left lower quadrant abdominal pain. Vital signs upon arrival shows temperature 100.1, rest of vital signs within acceptable limits. Patient given Tylenol. Laboratory evaluation obtained. CBC unremarkable. Metabolic panel shows low potassium of 2.7. Patient given IV and oral potassium. Rest metabolic panel is unremarkable. Urinalysis shows 6 white blood cells in the urine. Computed tomography scan of the abdomen and pelvis shows acute sigmoid diverticulitis with intramural abscess. There does appear to be findings concerning for risk of colovesicular fistula. Case is discussed in detail with Dr. Corrales will be happy to consult on the patient. At this point no indication for any surgical intervention at this time. Patient be admitted to medicine with consultation to infectious disease and Gen. surgery. - Related Data Home Medications Medication Instructions Recorded Confirmed Cetirizine HCl [Zyrtec] 10 mg PO DAILY PRN 11/17/18 01/06/21 Valsartan/Hydrochlorothiazide 1 each PO DAILY 07/15/20 01/06/21 [Valsartan-Hctz 160-12.5 mg Tab] Abemaciclib [Verzenio] 150 mg PO BID 11/05/20 01/06/21 Albuterol Sulfate [Proair Hfa] 1 - 2 puff INHALATION Q6HR PRN 11/05/20 01/06/21 Letrozole [Femara] 2.5 mg PO DAILY 11/05/20 01/06/21 Allergies Allergy/AdvReac Type Severity Reaction Status Date / Time No Known Allergies Allergy Verified 04/08/22 09:28 Review of Systems ROS Statement: Those systems with pertinent positive or pertinent negative responses have been documented in the HPI. ROS Other: All systems not noted in ROS Statement are negative. Past Medical History Past Medical History: Hypertension Additional Past Medical History / Comment(s): Heart murmur, bronchitis, diverticulitis History of Any Multi-Drug Resistant Organisms: None Reported Past Surgical History: Cholecystectomy Additional Past Surgical History / Comment(s): tubal - surgery Past Anesthesia/Blood Transfusion Reactions: No Reported Reaction Past Psychological History: No Psychological Hx Reported Smoking Status: Former smoker Past Alcohol Use History: Occasional Past Drug Use History: None Reported - Past Family History Father Family Medical History: Renal Disease Mother Additional Family Medical History / Comment(s): from ALS General Exam Limitations: no limitations Course Vital Signs 04/08/22 09:25 Temperature 100.1 F H Pulse Rate 88 Respiratory 16 Rate Blood Pressure 119/67 O2 Sat by Pulse 96 Oximetry Medical Decision Making - Lab Data Result diagrams: 04/08/22 09:59 04/08/22 10:40 Lab Results 04/08/22 04/08/22 04/08/22 Range/Units 09:59 09:59 10:40 WBC 13.3 H (3.8-10.6) k/uL RBC 4.12 (3.80-5.40) m/uL Hgb 12.7 (11.4-16.0) gm/dL Hct 38.2 (34.0-46.0) % MCV 92.9 (80.0-100.0) fL MCH 30.9 (25.0-35.0) pg MCHC 33.3 (31.0-37.0) g/dL RDW 12.4 (11.5-15.5) % Plt Count 424 (150-450) k/uL MPV 6.9 Neutrophils % 69 % Lymphocytes % 18 % Monocytes % 7 % Eosinophils % 2 % Basophils % 2 % Neutrophils # 9.2 H (1.3-7.7) k/uL Lymphocytes # 2.4 (1.0-4.8) k/uL Monocytes # 1.0 (0-1.0) k/uL Eosinophils # 0.3 (0-0.7) k/uL Basophils # 0.3 H (0-0.2) k/uL Sodium 136 L (137-145) mmol/L Potassium 2.7 L* (3.5-5.1) mmol/L Chloride 95 L (98-107) mmol/L Carbon Dioxide 31 H (22-30) mmol/L Anion Gap 10 mmol/L BUN 7 (7-17) mg/dL Creatinine 1.15 H (0.52-1.04) mg/dL Est GFR (CKD-EPI)AfAm 61 (>60 ml/min/1.73 sqM) Est GFR (CKD-EPI)NonAf 53 (>60 ml/min/1.73 sqM) Glucose 127 H (74-99) mg/dL Calcium 9.0 (8.4-10.2) mg/dL Total Bilirubin 0.4 (0.2-1.3) mg/dL AST 18 (14-36) U/L ALT 12 (4-34) U/L Alkaline Phosphatase 73 (38-126) U/L Total Protein 7.3 (6.3-8.2) g/dL Albumin 4.1 (3.5-5.0) g/dL Urine Color Yellow Urine Appearance Cloudy H (Clear) Urine pH 6.5 (5.0-8.0) Ur Specific [place] 1.018 (1.001-1.035) Urine Protein 1+ H (Negative) Urine Glucose (UA) Negative (Negative) Urine Ketones Negative (Negative) Urine Blood Negative (Negative) Urine Nitrite Negative (Negative) Urine Bilirubin Negative (Negative) Urine Urobilinogen 2.0 (<2.0) mg/dL Ur Leukocyte Esterase Moderate H (Negative) Urine RBC 1 (0-5) /hpf Urine WBC 6 H (0-5) /hpf Ur Squamous Epith Cells 2 (0-4) /hpf Cellular Casts 1 (0) /lpf Hyaline Casts 54 H (0-2) /lpf Urine Mucus Few H (None) /hpf Disposition Clinical Impression: Diverticulitis of large intestine with complication Disposition: ADMITTED IP TO THIS [facility] Condition: Serious Decision Time: 11:48
[2022-04-08 10:07] LABS: Basophils # (A) 0.3 k/uL (0-0.2); Basophils % (A) 2 %; Eosinophils # (A) 0.3 k/uL (0-0.7); Eosinophils % (A) 2 %; HCT 38.2 % (34.0-46.0); HGB 12.7 gm/dL (11.4-16.0); Lymphocytes # (A) 2.4 k/uL (1.0-4.8); Lymphocytes % (A) 18 %; MCH 30.9 pg (25.0-35.0); MCHC 33.3 g/dL (31.0-37.0); MCV 92.9 fL (80.0-100.0); Mean Platelet Volume 6.9; Monocytes % (A) 7 %; Neutrophils # (A) 9.2 k/uL (1.3-7.7); Neutrophils % (A) 69 %; Platelet Count 424 k/uL (150-450); RBC 4.12 m/uL (3.80-5.40); RDW 12.4 % (11.5-15.5); WBC 13.3 k/uL (3.8-10.6)
[2022-04-08 10:24] LABS: Appearance,Urine Cloudy (Clear); Bilirubin,Urine Negative (Negative); Blood,Urine Negative (Negative); Cellular Casts,Urine 1 /lpf (0); Color,Urine Yellow; Glucose,Urine (UA) Negative (Negative); Hyaline Casts,Urine 54 /lpf (0-2); Ketones,Urine Negative (Negative); Leukocyte Esterase,Urine Moderate (Negative); Mucus,Urine Few /hpf; Nitrite,Urine Negative (Negative); PH, Urine 6.5 (5.0-8.0); Protein,Urine 1+ (Negative); RBC,Urine 1 /hpf (0-5); Specific Gravity,Urine 1.018 (1.001-1.035); Squamous Epithelial Cell,Urine 2 /hpf (0-4); WBC,Urine 6 /hpf (0-5)
[2022-04-08 10:53] LABS: Albumin 4.1 g/dL (3.5-5.0); Total Bilirubin 0.4 mg/dL (0.2-1.3); Total Protein 7.3 g/dL (6.3-8.2)
[2022-04-08 11:03] LABS: Potassium 2.7 mmol/L (3.5-5.1)
[2022-04-08] MEDS ORDERED: POTASSIUM CHLORIDE 20 MEQ in WATER FOR INJECTION 1 100ML.BAG IVPB STA (11:05)
[2022-04-08] MEDS ORDERED: POTASSIUM CHLORIDE ER 20 MEQ TAB.ER PO STA (11:06)
--- NOTE | 2022-04-08 11:19 | CT ---
EXAMINATION TYPE: CT abdomen pelvis w con DATE OF EXAM: 04/08/2022 COMPARISON: 11/17/2018 HISTORY: Left lower quadrant abdominal/pelvic pain. CT DLP: 1749.6 mGycm CONTRAST: CT scan of the abdomen and pelvis is performed without Oral Contrast and with IV Contrast, patient in jected with 100ml mL of Isovue 300. FINDINGS: LUNG BASES-: No visible nodule. No infiltrate. LIVER/GB: The gallbladder surgically absent. No space occupying hepatic lesion. Biliary tree is of normal caliber. PANCREAS: No inflammation. No distinct mass. SPLEEN: No splenic enlargement. No lesion seen. ADRENALS: No nodule. No thickening. KIDNEYS/BLADDER: No hydronephrosis. No nephrolithiasis. No distinct renal mass. There is also wall thickening at the dome of the urinary bladder secondary to sigmoid diverticulitis. Loss of fat plane noted. No evidence for fistula this time. BOWEL: Normal appendix. There is wall thickening with inflammatory changes sigmoid colon with intramu ral abscess compatible with acute diverticulitis. GENITAL ORGANS: No gross abnormality. LYMPH NODES: No greater than 1cm abdominal or pelvic lymph nodes are appreciated. AORTA: No significant abnormality. OSSEOUS STRUCTURES: No significant abnormality is seen. OTHER: Fat-containing hernia upper abdominal wall midline at the epigastrium. IMPRESSION: 1. Acute sigmoid diverticulitis with intramural abscess. Given the proximity of the inflammatory boudreaux ge to the dome of the urinary bladder the patient is at risk for colovesical fistula. No fistula is v isualized at this time however.
[2022-04-08] MEDS ORDERED: NALOXONE 0.4 MG/ML 1 ML VIAL IV PRN (11:47)
[2022-04-08] MEDS ORDERED: PIPERACILLIN-TAZOBACTAM 3.375 GM in SODIUM CHLORIDE 0.9% 100 ML IVPB STA (11:48)
[2022-04-08] MEDS ORDERED: SODIUM CHLORIDE 0.9% 1,000 ML IV SCH (12:00)
[2022-04-08] MEDS: ACETAMINOPHEN TAB 325 MG TAB PO PRN ×2 (13:00→20:43)
[2022-04-08] MEDS: PIPERACILLIN-TAZOBACTAM 3.375 GM in SODIUM CHLORIDE 0.9% 100 ML IVPB SCH ×2 (14:32→20:44)
--- NOTE | 2022-04-08 15:14 | P.HPIM ---
History of Present Illness This is a pleasant 56 years old female with past medical history of diverticulitis and hypertension. Her PCP is Dr. Cash Because of lower abdominal pain 7 days, pain was nonspecific in nature about 6- 8/10 in severity Associated with vomiting Patient has constipation She denies smoking, alcohol or illicit Patient had low-grade fever of 100.1 upon admission Labs showed leukocytosis of 13.3 Hypokalemia at 2.7, sodium 136, creatinine 1.1. Liver enzymes not elevated. Urinalysis showing moderate leukocyte esterase and WBCs 6 CT of the abdomen and pelvis showing acute sigmoid diverticulitis with intramural abscess. Which is close to the urinary bladder and patient at risk of colovesical fistula On admission patient was started on Zosyn and normal saline Review of Systems CONSTITUTIONAL: No fever, no malaise, no fatigue. HEENT: No recent visual problems or hearing problems. Denied any sore throat. CARDIOVASCULAR: No orthopnea, PND, no palpitations, no syncope. PULMONARY: No shortness of breath, no cough, no hemoptysis. GASTROINTESTINAL: No diarrhea, no nausea, no vomiting, . Normoactive bowel sounds. NEUROLOGICAL: No headaches, no weakness, no numbness. HEMATOLOGICAL: Denies any bleeding or petechiae. GENITOURINARY: Denies any burning micturition, frequency, or urgency. MUSCULOSKELETAL/RHEUMATOLOGICAL: Denies any joint pain, swelling, or any muscle pain. ENDOCRINE: Denies any polyuria or polydipsia. Past Medical History Past Medical History: Hypertension Additional Past Medical History / Comment(s): Heart murmur, bronchitis, diverticulitis History of Any Multi-Drug Resistant Organisms: None Reported Past Surgical History: Cholecystectomy Additional Past Surgical History / Comment(s): tubal - surgery Past Anesthesia/Blood Transfusion Reactions: No Reported Reaction Past Psychological History: No Psychological Hx Reported Smoking Status: Former smoker Past Alcohol Use History: Occasional Past Drug Use History: None Reported - Past Family History Father Family Medical History: Renal Disease Mother Additional Family Medical History / Comment(s): from ALS Medications and Allergies Home Medications Medication Instructions Recorded Confirmed Type Cetirizine HCl [Zyrtec] 10 mg PO DAILY PRN 11/17/18 04/08/22 History Valsartan 160 mg PO DAILY 04/08/22 04/08/22 History hydroCHLOROthiazide [Hydrodiuril] 12.5 mg PO DAILY 04/08/22 04/08/22 History Allergies Allergy/AdvReac Type Severity Reaction Status Date / Time No Known Allergies Allergy Verified 04/08/22 12:47 Physical Exam Vitals: Vital Signs Temp Pulse Resp BP Pulse Ox 04/08/22 11:40 99 F 100 18 132/78 100 04/08/22 09:25 100.1 F H 88 16 119/67 96 Intake and Output 04/07/22 04/08/22 04/08/22 22:59 06:59 14:59 Other: Weight 97.976 kg GENERAL: The patient is alert and oriented x3, not in any acute distress. Well developed, well nourished. HEENT: Pupils are round and equally reacting to light. EOMI. No scleral icterus. No conjunctival pallor. Normocephalic, atraumatic. No pharyngeal erythema. No thyromegaly. CARDIOVASCULAR: S1 and S2 present. No murmurs, rubs, or gallops. PULMONARY: Chest is clear to auscultation, no wheezing or crackles. -ABDOMEN: Soft, LLQ tenderness, nondistended, normoactive bowel sounds. No palpable organomegaly. MUSCULOSKELETAL: No joint swelling or deformity. EXTREMITIES: No cyanosis, clubbing, or pedal edema. NEUROLOGICAL: Gross neurological examination did not reveal any focal deficits. SKIN: No rashes. No petechiae Results CBC & Chem 7: 04/08/22 09:59 04/08/22 10:40 Labs: Abnormal Lab Results - Last 24 Hours (Table) 04/08/22 04/08/22 04/08/22 Range/Units 09:59 09:59 10:40 WBC 13.3 H (3.8-10.6) k/uL Neutrophils # 9.2 H (1.3-7.7) k/uL Basophils # 0.3 H (0-0.2) k/uL Sodium 136 L (137-145) mmol/L Potassium 2.7 L* (3.5-5.1) mmol/L Chloride 95 L (98-107) mmol/L Carbon Dioxide 31 H (22-30) mmol/L Creatinine 1.15 H (0.52-1.04) mg/dL Glucose 127 H (74-99) mg/dL Urine Appearance Cloudy H (Clear) Urine Protein 1+ H (Negative) Ur Leukocyte Esterase Moderate H (Negative) Urine WBC 6 H (0-5) /hpf Hyaline Casts 54 H (0-2) /lpf Urine Mucus Few H (None) /hpf Thrombosis Risk Factor Assmnt - Choose All That Apply Any of the Below Risk Factors Present?: Yes Each Factor Represents 1 point: Age 41-60 years, Obesity (BMI >25) Other Risk Factors: No Other congenital or acquired thrombophilia - If yes, enter type in comment: No Thrombosis Risk Factor Assessment Total Risk Factor Score: 2 Thrombosis Risk Factor Assessment Level: Low Risk Assessment and Plan Assessment: Acute diverticulitis, with intramural abscess Mild leukocytosis and sepsis with fever. Hypertension Urinary bladder irritation from acute diverticulitis Plan: This is a pleasant 56 years old female who presents with acute diverticulitis Continue with liquid diet on bowel rest Pain management IV hydration Surgery team consult Labs and medication were reviewed.. Continue same treatment. Continue with symptomatic treatment. Resume home medication. Monitor lytes and vitals. DVT and GI prophylaxis. Further recommendations depends on the clinical course of the patient DVT prophylaxis: Subcutaneous heparin GI Prophylaxis: Pepcid Prognosis is guarded
[2022-04-08] MEDS: 0.9% NACL WITH KCL 20 MEQ/L 1,000 ML IV SCH (17:25)
[2022-04-08] MEDS: MORPHINE SULFATE 2 MG/ML SYRINGE IVP PRN (20:43)
[2022-04-09] MEDS: MORPHINE SULFATE 2 MG/ML SYRINGE IVP PRN (05:19)
[2022-04-09] MEDS: ACETAMINOPHEN TAB 325 MG TAB PO PRN ×2 (05:20→17:49)
[2022-04-09] MEDS: PIPERACILLIN-TAZOBACTAM 3.375 GM in SODIUM CHLORIDE 0.9% 100 ML IVPB SCH ×3 (05:20→19:41)
[2022-04-09] MEDS: 0.9% NACL WITH KCL 20 MEQ/L 1,000 ML IV SCH ×3 (06:54→17:49)
[2022-04-09] MEDS: HEPARIN SODIUM,PORCINE/PF 5,000 UNIT/0.5 ML SYRINGE SQ SCH ×2 (08:02→19:43)
--- NOTE | 2022-04-09 09:29 | P.GSCN ---
History of Present Illness Consult date: 04/09/22 History of present illness: 56-year-old female presents to the emergency department with complaints of abdominal pain. She states that the pain is mostly located in the left lower quadrant and that she has some burning with urination. She denies any nausea or vomiting. On work-up, patient did have a CT of the abdomen and pelvis. This was noted to show evidence of acute diverticulitis and 1.9 cm intramural abscess of the colon. Patient states that she did have a diverticulitis episode approximately 2 years ago that was treated with antibiotics as well. She states that over the past few weeks, she has not maintained her previous diet and states that she has had some constipation episodes. She denies any history of previous colonoscopy. Review of Systems All systems: negative Past Medical History Past Medical History: Hypertension Additional Past Medical History / Comment(s): Heart murmur, bronchitis, diverticulitis History of Any Multi-Drug Resistant Organisms: None Reported Past Surgical History: Cholecystectomy Additional Past Surgical History / Comment(s): tubal - surgery Past Anesthesia/Blood Transfusion Reactions: No Reported Reaction Past Psychological History: No Psychological Hx Reported Smoking Status: Former smoker Past Alcohol Use History: Occasional Past Drug Use History: None Reported - Past Family History Father Family Medical History: Renal Disease Mother Additional Family Medical History / Comment(s): from ALS Medications and Allergies Home Medications Medication Instructions Recorded Confirmed Type Cetirizine HCl [Zyrtec] 10 mg PO DAILY PRN 11/17/18 04/08/22 History Valsartan 160 mg PO DAILY 04/08/22 04/08/22 History hydroCHLOROthiazide [Hydrodiuril] 12.5 mg PO DAILY 04/08/22 04/08/22 History Allergies Allergy/AdvReac Type Severity Reaction Status Date / Time No Known Allergies Allergy Verified 04/08/22 12:47 Surgical - Exam Osteopathic Statement: *. No significant issues noted on an osteopathic structural exam other than those noted in the History and Physical/Consult. Vital Signs Temp Pulse Resp BP Pulse Ox 100.1 F H 88 16 119/67 96 04/08/22 09:25 04/08/22 09:25 04/08/22 09:25 04/08/22 09:25 04/08/22 09:25 - General well nourished, no distress - Eyes normal ocular movement - ENT no hearing loss - Neck trachea midline - Respiratory normal respiratory effort - Abdomen Soft, tender to palpation in the left lower quadrant and suprapubic area, nondistended, no rebound, no guarding - Psychiatric oriented to time, oriented to person, oriented to place Results - Labs 04/08/22 09:59 04/08/22 13:51 Abnormal Lab Results - Last 24 Hours (Table) 04/08/22 04/08/22 04/08/22 Range/Units 09:59 09:59 10:40 WBC 13.3 H (3.8-10.6) k/uL Neutrophils # 9.2 H (1.3-7.7) k/uL Basophils # 0.3 H (0-0.2) k/uL Sodium 136 L (137-145) mmol/L Potassium 2.7 L* (3.5-5.1) mmol/L Chloride 95 L (98-107) mmol/L Carbon Dioxide 31 H (22-30) mmol/L Creatinine 1.15 H (0.52-1.04) mg/dL Glucose 127 H (74-99) mg/dL Urine Appearance Cloudy H (Clear) Urine Protein 1+ H (Negative) Ur Leukocyte Esterase Moderate H (Negative) Urine WBC 6 H (0-5) /hpf Hyaline Casts 54 H (0-2) /lpf Urine Mucus Few H (None) /hpf Diabetes panel 04/08/22 04/08/22 Range/Units 10:40 13:51 Sodium 136 L (137-145) mmol/L Potassium 2.7 L* 3.8 (3.5-5.1) mmol/L Chloride 95 L (98-107) mmol/L Carbon Dioxide 31 H (22-30) mmol/L BUN 7 (7-17) mg/dL Creatinine 1.15 H (0.52-1.04) mg/dL Glucose 127 H (74-99) mg/dL Calcium 9.0 (8.4-10.2) mg/dL AST 18 (14-36) U/L ALT 12 (4-34) U/L Alkaline Phosphatase 73 (38-126) U/L Total Protein 7.3 (6.3-8.2) g/dL Albumin 4.1 (3.5-5.0) g/dL Calcium panel 04/08/22 Range/Units 10:40 Calcium 9.0 (8.4-10.2) mg/dL Albumin 4.1 (3.5-5.0) g/dL Pituitary panel 04/08/22 04/08/22 Range/Units 10:40 13:51 Sodium 136 L (137-145) mmol/L Potassium 2.7 L* 3.8 (3.5-5.1) mmol/L Chloride 95 L (98-107) mmol/L Carbon Dioxide 31 H (22-30) mmol/L BUN 7 (7-17) mg/dL Creatinine 1.15 H (0.52-1.04) mg/dL Glucose 127 H (74-99) mg/dL Calcium 9.0 (8.4-10.2) mg/dL Adrenal panel 04/08/22 04/08/22 Range/Units 10:40 13:51 Sodium 136 L (137-145) mmol/L Potassium 2.7 L* 3.8 (3.5-5.1) mmol/L Chloride 95 L (98-107) mmol/L Carbon Dioxide 31 H (22-30) mmol/L BUN 7 (7-17) mg/dL Creatinine 1.15 H (0.52-1.04) mg/dL Glucose 127 H (74-99) mg/dL Calcium 9.0 (8.4-10.2) mg/dL Total Bilirubin 0.4 (0.2-1.3) mg/dL AST 18 (14-36) U/L ALT 12 (4-34) U/L Alkaline Phosphatase 73 (38-126) U/L Total Protein 7.3 (6.3-8.2) g/dL Albumin 4.1 (3.5-5.0) g/dL Assessment and Plan Plan: 56-year-old female with acute diverticulitis and intramural abscess. Abscess measures approximately 1.9 cm. Patient was started on IV antibiotics with Zosyn and states that there has been some improvement in her symptoms since antibiotic regimen. At this point, I would recommend continuing IV antibiotics for attempt to resolve diverticulitis episode and intramural abscess. Currently, we will continue with medical management. If any change in symptoms or worsening of infection, we will need to consider surgical or interventional radiologic approach. However, with some improvement with antibiotic regimen, we will continue to follow prior to making any surgical decision. Importance of colonoscopy after resolution of diverticulitis was also discussed in depth with the patient.
[2022-04-09 09:41] LABS: African American GFR (CKD) 72.4 (60.0-200.0); Anion Gap 14.1 mmol/L (10.00-18.00); BUN/Creat Ratio 3.8 Ratio (12.00-20.00); Blood Urea Nitrogen 3.8 mg/dL (9.0-27.0); Calcium 8.5 mg/dL (8.7-10.3); Carbon Dioxide 24.9 mmol/L (20.0-27.5); Magnesium 2.2 mg/dL (1.5-2.4); Non-African American GFR(CKD) 62.5 (60.0-200.0); Potassium 3.1 mmol/L (3.5-5.5)
[2022-04-09] MEDS ORDERED: Potassium Replacement Protocol 1 EACH MISC MISCELLANE PRN (10:27)
[2022-04-09] MEDS: POTASSIUM CHLORIDE ER 20 MEQ TAB.ER PO SCH (11:10)
--- NOTE | 2022-04-09 21:47 | P.PN ---
Subjective This is a pleasant 56 years old female with past medical history of diverticulitis and hypertension. Her PCP is Dr. Cash Because of lower abdominal pain 7 days, pain was nonspecific in nature about 6- 8/10 in severity Associated with vomiting Patient has constipation She denies smoking, alcohol or illicit Patient had low-grade fever of 100.1 upon admission Labs showed leukocytosis of 13.3 Hypokalemia at 2.7, sodium 136, creatinine 1.1. Liver enzymes not elevated. Urinalysis showing moderate leukocyte esterase and WBCs 6 CT of the abdomen and pelvis showing acute sigmoid diverticulitis with intramural abscess. Which is close to the urinary bladder and patient at risk of colovesical fistula On admission patient was started on Zosyn and normal saline 04/09/2022 Patient tolerated liquid diet with no vomiting, abdominal pain is improved but increased with movement, she is passing only gas today with no bowel movement. Her urine symptoms improving as well. Surgical team recommended continue with antibiotic treatment. Today she had a fever of 101.5. Infectious disease team consulted, currently on Zosyn and normal saline rate lo wered to 100 mL per hour Objective - Vital Signs Vital signs: Vital Signs Temp 101.5 F H 04/09/22 14:00 Pulse 84 04/09/22 14:00 Resp 17 04/09/22 14:00 BP 130/65 04/09/22 14:00 Pulse Ox 98 04/09/22 14:00 FiO2 Intake & Output 04/09/22 04/09/22 04/10/22 06:59 18:59 06:59 Intake Total 240 Balance 240 Intake: Oral 240 Other: Voiding Method Toilet # Voids 3 3 - Exam GENERAL: The patient is alert and oriented x3, not in any acute distress. Well developed, well nourished. HEENT: Pupils are round and equally reacting to light. EOMI. No scleral icterus. No conjunctival pallor. Normocephalic, atraumatic. No pharyngeal erythema. No thyromegaly. CARDIOVASCULAR: S1 and S2 present. No murmurs, rubs, or gallops. PULMONARY: Chest is clear to auscultation, no wheezing or crackles. -ABDOMEN: Soft, mild LLQ tenderness, nondistended, normoactive bowel sounds. No palpable organomegaly. MUSCULOSKELETAL: No joint swelling or deformity. EXTREMITIES: No cyanosis, clubbing, or pedal edema. NEUROLOGICAL: Gross neurological examination did not reveal any focal deficits. SKIN: No rashes. no petechiae. - Labs CBC & Chem 7: 04/08/22 09:59 04/09/22 05:59 Labs: Abnormal Lab Results - Last 24 Hours (Table) 04/09/22 Range/Units 05:59 Potassium 3.1 L (3.5-5.5) mmol/L BUN 3.8 L (9.0-27.0) mg/dL BUN/Creatinine Ratio 3.80 L (12.00-20.00) Ratio Calcium 8.5 L (8.7-10.3) mg/dL Assessment and Plan Assessment: Acute diverticulitis, with intramural abscess Mild leukocytosis and sepsis with fever. Hypertension Urinary bladder irritation from acute diverticulitis Plan: This is a pleasant 56 years old female who presents with acute diverticulitis Continue with liquid diet on bowel rest Pain management IV hydration Surgery team consult Labs and medication were reviewed.. Continue same treatment. Continue with symptomatic treatment. Resume home medication. Monitor lytes and vitals. DVT and GI prophylaxis. Further recommendations depends on the clinical course of the patient DVT prophylaxis: Subcutaneous heparin GI Prophylaxis: Pepcid Prognosis is guarded
--- NOTE | 2022-04-09 23:58 | P.CONS ---
History of Present Illness - Reason for Consult Consult date: 04/09/22 intra-abdominal infection Requesting physician: Porter Moe - Chief Complaint Abdominal pain and pressure x few days - History of Present Illness Patient is a 56-year-old -[place] female with a past medical he significant for an episode of diverticulitis about 2 years ago treated medically patient presenting to the ER yesterday morning for evaluation of left-sided abdominal pain that apparently been going on for about 57 days before presentation to the hospital patient had been complaining of pain to be more of a dull aching to sharp about 6-7 out of 10 and radiation patient has been complaining of constipation and hard time having a bowel movement patient also having symptoms of urinary frequency and dysuria however denies having any nocturia or hematuria with the symptoms the patient has been evaluated by the ER physician on arrival to the ER she did have a fever 100.1 F no significant tachycardia or hypoxemia patient did have white count 13.3 with a left shift creatinine has been normal urine shows moderate leukocyte esterase and 6 WBC p atient did have a CT of abdominal pelvis with tissues acute segmental to colitis with intramural abscess given the proximity of inflammatory changes to the dome of the urinary bladder is a risk for colovesical fistula patient was started on Zosyn has been admitted to hospital infectious disease was consulted for further management of antibiotic therapy Review of Systems Positive point has been mentioned in the HPI rest of the systems are negative Past Medical History Past Medical History: Hypertension Additional Past Medical History / Comment(s): Heart murmur, bronchitis, diverticulitis History of Any Multi-Drug Resistant Organisms: None Reported Past Surgical History: Cholecystectomy Additional Past Surgical History / Comment(s): tubal - surgery Past Anesthesia/Blood Transfusion Reactions: No Reported Reaction Past Psychological History: No Psychological Hx Reported Smoking Status: Former smoker Past Alcohol Use History: Occasional Past Drug Use History: None Reported - Past Family History Father Family Medical History: Renal Disease Mother Additional Family Medical History / Comment(s): from ALS Medications and Allergies Home Medications Medication Instructions Recorded Confirmed Type Valsartan 160 mg PO DAILY 04/08/22 04/08/22 History cefUROXime axetiL [Ceftin] 500 mg PO BID 10 Days #20 tab 04/14/22 Rx metroNIDAZOLE [Flagyl] 500 mg PO TID #30 tab 04/14/22 Rx Allergies Allergy/AdvReac Type Severity Reaction Status Date / Time No Known Allergies Allergy Verified 04/08/22 12:47 Physical Exam Vitals: Vital Signs Temp Pulse Resp BP Pulse Ox 04/09/22 14:00 101.5 F H 84 17 130/65 98 04/09/22 08:16 103/57 04/09/22 08:00 98.0 F 77 16 89/43 95 04/09/22 05:37 99.4 F 04/09/22 02:02 100.7 F H 76 19 147/68 97 04/08/22 20:00 99.0 F 70 17 138/68 96 Intake and Output 04/09/22 04/09/22 04/09/22 06:59 14:59 22:59 Intake Total 120 Balance 120 Intake: Oral 120 Other: # Voids 3 GENERAL DESCRIPTION: Middle-aged female lying in bed, no distress. No tachypnea or accessory muscle of respiration use. HEENT: Shows Pallor , no scleral icterus. Oral mucous membrane is dry. No pharyngeal erythema or thrush NECK: Trachea central, no thyromegaly. LUNGS: Unlabored breathing. Clear to auscultation anteriorly. No wheeze or crackle. HEART: S1, S2, regular rate and rhythm. No loud murmur ABDOMEN: Soft, left lower abdominal tenderness , no guarding or rigidity, no organomegaly EXTREMITIES: No edema of feet. SKIN: No rash, no masses palpable. NEUROLOGICAL: The patient is awake, alert, oriented x3, mood and affect normal. Results CBC & Chem 7: 04/14/22 06:55 04/14/22 12:30 Labs: Abnormal Lab Results - Last 24 Hours (Table) 04/09/22 Range/Units 05:59 Potassium 3.1 L (3.5-5.5) mmol/L BUN 3.8 L (9.0-27.0) mg/dL BUN/Creatinine Ratio 3.80 L (12.00-20.00) Ratio Calcium 8.5 L (8.7-10.3) mg/dL Assessment and Plan (1) Diverticulitis of large intestine with abscess Status: Acute Code(s): K57.20 - DVTRCLI OF LG INT W PERFORATION AND ABSCESS W/O BLEEDING SNOMED Code(s): 5635199 Plan: 1patient presented to hospital with abdominal pain in this patient did have previous episode of diverticulitis now with evidence of diverticulitis and concerning for intramural abscess and high risk of colovesicular fistula in this patient who do have some urinary symptoms but no pneumaturia or hematuria will need to call for the enteric gram-negative pathogen with a likely pathogen. 2Zosyn 3.375 g daily to continue along with bowel rest. 3inflammatory markers and CBC and monitor closely. We will follow on clinical condition and cultures to further adjust medication if needed Thank you for this consultation will follow this patient along with you Time with Patient: Greater than 30
[2022-04-10] MEDS: ACETAMINOPHEN TAB 325 MG TAB PO PRN ×4 (00:42→22:10)
[2022-04-10] MEDS: 0.9% NACL WITH KCL 20 MEQ/L 1,000 ML IV SCH ×3 (01:45→22:46)
[2022-04-10] MEDS: PIPERACILLIN-TAZOBACTAM 3.375 GM in SODIUM CHLORIDE 0.9% 100 ML IVPB SCH ×3 (04:42→22:09)
[2022-04-10 08:28] LABS: HCT 41.4 % (34.0-46.0); Hypochromasia Moderate; MCH 31.8 pg (25.0-35.0); MCHC 31.5 g/dL (31.0-37.0); Mean Platelet Volume 7.7; Platelet Count 360 k/uL (150-450); RBC 4.11 m/uL (3.80-5.40); RDW 12.8 % (11.5-15.5); WBC 12.1 k/uL (3.8-10.6)
[2022-04-10 08:29] LABS: MCV 100.9 fL (80.0-100.0)
[2022-04-10 08:39] LABS: African American GFR (CKD) 83 (>60 ml/min/1.73 sqM); Anion Gap 13 mmol/L; Blood Urea Nitrogen <2 mg/dL (7-17); Calcium 8.8 mg/dL (8.4-10.2); Carbon Dioxide 20 mmol/L (22-30); Chloride 109 mmol/L (98-107); Glucose 168 mg/dL (74-99); Non-African American GFR(CKD) 72 (>60 ml/min/1.73 sqM); Sodium 142 mmol/L (137-145)
[2022-04-10] MEDS: HEPARIN SODIUM,PORCINE/PF 5,000 UNIT/0.5 ML SYRINGE SQ SCH ×2 (08:47→22:10)
--- NOTE | 2022-04-10 08:57 | P.PN ---
Subjective Progress Note Date: 04/10/22 Patient seen and examined at bedside. She did have febrile episode overnight that has now resolved. She states that this morning she had 3 bowel movements and states that her abdominal pain greatly improved after the bowel movements. She states that one of the 3 bowel movements did have blood in the stool. She denies any nausea or vomiting. Leukocytosis is 12.1, down from 13. Objective - Vital Signs Vital signs: Vital Signs Temp 99.6 F 04/10/22 08:00 Pulse 86 04/10/22 08:00 Resp 16 04/10/22 08:00 BP 153/78 04/10/22 08:00 Pulse Ox 96 04/10/22 08:00 FiO2 Intake & Output 04/09/22 04/10/22 04/10/22 18:59 06:59 18:59 Intake Total 240 Output Total 0 Balance 240 0 Intake: Oral 240 Output: Stool 0 Other: Voiding Method Toilet Toilet # Voids 3 3 - Constitutional General appearance: Present: cooperative, no acute distress - Gastrointestinal Gastrointestinal Comment(s): Soft, some tenderness to deep palpation in the left lower quadrant, nontender to percussion, no Distention or rebound or guarding is noted - Psychiatric Psychiatric: Present: A&O x's 3 - Labs CBC & Chem 7: 04/10/22 08:05 04/10/22 08:05 Labs: Abnormal Lab Results - Last 24 Hours (Table) 04/09/22 04/10/22 04/10/22 Range/Units 05:59 08:05 08:05 WBC 12.1 H (3.8-10.6) k/uL MCV 100.9 H D (80.0-100.0) fL Potassium 3.1 L (3.5-5.5) mmol/L Chloride 109 H (98-107) mmol/L Carbon Dioxide 20 L (22-30) mmol/L BUN 3.8 L <2 L (9.0-27.0) mg/dL BUN/Creatinine Ratio 3.80 L (12.00-20.00) Ratio Glucose 168 H (74-99) mg/dL Calcium 8.5 L (8.7-10.3) mg/dL Assessment and Plan Plan: 56-year-old female with acute diverticulitis and intramural abscess. She is continued on IV antibiotics and is being followed by infectious disease. Abdominal pain has improved over the past 24 hours. Patient also states that after bowel movement she did have improvement. Of note, patient did have febrile episode overnight. We will continue to monitor. At this point, with some symptomatic improvement in abdominal pain and decrease in leukocytosis, I does appear that antibiotics are effective at this moment. We will continue to monitor for any further clinical changes. Further discussion was had with the patient on possibility of surgery and Betancur's procedure with ostomy creation. Patient states that she would like to avoid surgery at all costs.
--- NOTE | 2022-04-10 21:03 | P.PN ---
Subjective This is a pleasant 56 years old female with past medical history of diverticulitis and hypertension. Her PCP is Dr. Cash Because of lower abdominal pain 7 days, pain was nonspecific in nature about 6- 8/10 in severity Associated with vomiting Patient has constipation She denies smoking, alcohol or illicit Patient had low-grade fever of 100.1 upon admission Labs showed leukocytosis of 13.3 Hypokalemia at 2.7, sodium 136, creatinine 1.1. Liver enzymes not elevated. Urinalysis showing moderate leukocyte esterase and WBCs 6 CT of the abdomen and pelvis showing acute sigmoid diverticulitis with intramural abscess. Which is close to the urinary bladder and patient at risk of colovesical fistula On admission patient was started on Zosyn and normal saline 04/09/2022 Patient tolerated liquid diet with no vomiting, abdominal pain is improved but increased with movement, she is passing only gas today with no bowel movement. Her urine symptoms improving as well. Surgical team recommended continue with antibiotic treatment. Today she had a fever of 101.5. Infectious disease team consulted, currently on Zosyn and normal saline rate lo wered to 100 mL per hour 04/10/2022 Patient still with some abdominal pain in the left lower quadrant which is improved compared to yesterday but today she has increased urinary symptoms, we ordered pyridium 2 days as she is discharged from her urinary symptoms. Other than that she is tolerating liquid diet, no vomiting, no bowel movement or passing gases. Surgery team recommended to continue with conservative management for now as patient trying to avoid surgery. Objective - Vital Signs Vital signs: Vital Signs Temp 99.6 F 04/10/22 08:00 Pulse 86 04/10/22 08:00 Resp 16 04/10/22 08:00 BP 153/78 04/10/22 08:00 Pulse Ox 96 04/10/22 08:00 FiO2 Intake & Output 04/09/22 04/10/22 04/10/22 18:59 06:59 18:59 Intake Total 240 Output Total 0 Balance 240 0 Intake: Oral 240 Output: Stool 0 Other: Voiding Method Toilet Toilet # Voids 3 3 - Exam GENERAL: The patient is alert and oriented x3, not in any acute distress. Well developed, well nourished. HEENT: Pupils are round and equally reacting to light. EOMI. No scleral icterus. No conjunctival pallor. Normocephalic, atraumatic. No pharyngeal erythema. No thyromegaly. CARDIOVASCULAR: S1 and S2 present. No murmurs, rubs, or gallops. PULMONARY: Chest is clear to auscultation, no wheezing or crackles. -ABDOMEN: Soft, mild LLQ tenderness, nondistended, normoactive bowel sounds. No palpable organomegaly. MUSCULOSKELETAL: No joint swelling or deformity. EXTREMITIES: No cyanosis, clubbing, or pedal edema. NEUROLOGICAL: Gross neurological examination did not reveal any focal deficits. SKIN: No rashes. no petechiae. - Labs CBC & Chem 7: 04/10/22 08:05 04/10/22 08:05 Labs: Abnormal Lab Results - Last 24 Hours (Table) 04/10/22 04/10/22 Range/Units 08:05 08:05 WBC 12.1 H (3.8-10.6) k/uL MCV 100.9 H D (80.0-100.0) fL Chloride 109 H (98-107) mmol/L Carbon Dioxide 20 L (22-30) mmol/L BUN <2 L (7-17) mg/dL Glucose 168 H (74-99) mg/dL Assessment and Plan Assessment: Acute diverticulitis, with intramural abscess Mild leukocytosis and sepsis with fever. Hypertension Urinary bladder irritation from acute diverticulitis Plan: This is a pleasant 56 years old female who presents with acute diverticulitis Continue with liquid diet on bowel rest Pain management IV hydration Surgery team consult Labs and medication were reviewed.. Continue same treatment. Continue with symptomatic treatment. Resume home medication. Monitor lytes and vitals. DVT and GI prophylaxis. Further recommendations depends on the clinical course of the patient DVT prophylaxis: Subcutaneous heparin GI Prophylaxis: Pepcid Prognosis is guarded
[2022-04-10] MEDS ORDERED: ONDANSETRON 4 MG/2 ML VIAL IVP PRN (22:29)
[2022-04-10] MEDS ORDERED: ONDANSETRON 4 MG/2 ML VIAL ONE (22:30)
[2022-04-11] MEDS: PIPERACILLIN-TAZOBACTAM 3.375 GM in SODIUM CHLORIDE 0.9% 100 ML IVPB SCH ×3 (05:25→19:40)
[2022-04-11] MEDS: 0.9% NACL WITH KCL 20 MEQ/L 1,000 ML IV SCH ×2 (05:25→19:05)
--- NOTE | 2022-04-11 06:38 | P.PN ---
Subjective Progress Note Date: 04/10/22 Principal diagnosis: Acute sigmoid diverticulitis Patient is a 56-year-old female presented to hospital with abdominal pain and has been diagnosed with diverticulitis. No perforation. On today's evaluation of the 04/10/2022, the patient did have a low-grade fever of 100.8F, patient denies any worsening abdominal pain did have some bowel movement no bloody mucus in stool denies having any hematuria, lower abdominal/pelvic pressure or vomiting, no chest pain shortness of breath or cough Objective - Vital Signs Vital signs: Vital Signs Temp 100.8 F H 04/10/22 15:05 Pulse 82 04/10/22 13:47 Resp 16 04/10/22 13:47 BP 136/77 04/10/22 13:47 Pulse Ox 95 04/10/22 13:47 FiO2 Intake & Output 04/09/22 04/10/22 04/10/22 18:59 06:59 18:59 Intake Total 240 Output Total 0 Balance 240 0 Intake: Oral 240 Output: Stool 0 Other: Voiding Method Toilet Toilet # Voids 3 3 - Exam GENERAL DESCRIPTION: Middle-age female lying in bed in no distress RESPIRATORY SYSTEM: Unlabored breathing , decreased breath sounds at bases HEART: S1 S2 regular rate and rhythm , ABDOMEN: Soft , mild lower abdominal tenderness EXTREMITIES: No edema feet - Labs CBC & Chem 7: 04/10/22 08:05 04/10/22 08:05 Labs: Abnormal Lab Results - Last 24 Hours (Table) 04/10/22 04/10/22 Range/Units 08:05 08:05 WBC 12.1 H (3.8-10.6) k/uL MCV 100.9 H D (80.0-100.0) fL Chloride 109 H (98-107) mmol/L Carbon Dioxide 20 L (22-30) mmol/L BUN <2 L (7-17) mg/dL Glucose 168 H (74-99) mg/dL Assessment and Plan (1) Diverticulitis Current Visit: No Status: Acute Code(s): K57.92 - DVTRCLI OF INTEST, PART UNSP, W/O PERF OR ABSCESS W/O BLEED SNOMED Code(s): 068140879 Plan: 1patient presented to hospital with abdominal pain in this patient did have previous episode of diverticulitis now with evidence of diverticulitis and concerning for intramural abscess and high risk of colovesicular fistula in this patient who do have some urinary symptoms but no pneumaturia or hematuria will need to call for the enteric gram-negative pathogen with a likely pathogen. 2patient to continue with Zosyn 3.375 g daily to continue along with bowel rest. And monitor clinical course closely Time with Patient: Less than 30
[2022-04-11] MEDS: HEPARIN SODIUM,PORCINE/PF 5,000 UNIT/0.5 ML SYRINGE SQ SCH ×2 (08:14→19:49)
[2022-04-11] MEDS: ACETAMINOPHEN TAB 325 MG TAB PO PRN ×2 (08:15→19:40)
--- NOTE | 2022-04-11 14:16 | P.PN ---
Subjective Progress Note Date: 04/11/22 Patient seen and examined at bedside. States she is feeling much better today. Abdominal pain resolved. States she is not having any nausea or vomiting with a clear liquid diet. She is noted to have a fever of 101 yesterday around 8 PM. Objective - Vital Signs Vital signs: Vital Signs Temp 99.8 F H 04/11/22 08:00 Pulse 73 04/11/22 08:00 Resp 18 04/11/22 08:00 BP 150/71 04/11/22 08:00 Pulse Ox 98 04/11/22 08:00 FiO2 Intake & Output 04/10/22 04/11/22 04/11/22 18:59 06:59 18:59 Intake Total 600 Output Total 0 Balance 600 Intake: Intake, IV Titration 600 Amount 0.9% NaCl with KCl 20 Meq 400 /l 1,000 ml @ 100 mls/hr IV .Q10H IRAJ Rx#: [id number] Piperacillin-Tazobactam 3 200 .375 gm In Sodium Chloride 0.9% 100 ml @ 25 mls/hr IVPB Q8H IRAJ Rx#: [id number] Output: Stool 0 Other: Voiding Method Toilet Toilet # Voids 2 4 # Bowel Movements 2 - Constitutional General appearance: Present: cooperative, no acute distress - Gastrointestinal Gastrointestinal Comment(s): Soft, much improved tenderness, nondistended, no rebound, no guarding - Labs CBC & Chem 7: 04/10/22 08:05 04/10/22 08:05 Assessment and Plan Plan: 56-year-old female with acute diverticulitis and intramural abscess. She is co ntinued on IV antibiotics and is being followed by infectious disease. Abdominal pain has resolved today. She did have a febrile episode overnight and is being followed by ID. With complete resolution of abdominal pain, patient appears to be having significant improvement. We will continue to monitor febrile episodes. Patient has not showing any acute abdomen symptoms at this time. We will continue to hold off on any surgical intervention, unless absolutely required.
--- NOTE | 2022-04-11 21:27 | P.PN ---
Subjective This is a pleasant 56 years old female with past medical history of diverticulitis and hypertension. Her PCP is Dr. Cash Because of lower abdominal pain 7 days, pain was nonspecific in nature about 6- 8/10 in severity Associated with vomiting Patient has constipation She denies smoking, alcohol or illicit Patient had low-grade fever of 100.1 upon admission Labs showed leukocytosis of 13.3 Hypokalemia at 2.7, sodium 136, creatinine 1.1. Liver enzymes not elevated. Urinalysis showing moderate leukocyte esterase and WBCs 6 CT of the abdomen and pelvis showing acute sigmoid diverticulitis with intramural abscess. Which is close to the urinary bladder and patient at risk of colovesical fistula On admission patient was started on Zosyn and normal saline 04/09/2022 Patient tolerated liquid diet with no vomiting, abdominal pain is improved but increased with movement, she is passing only gas today with no bowel movement. Her urine symptoms improving as well. Surgical team recommended continue with antibiotic treatment. Today she had a fever of 101.5. Infectious disease team consulted, currently on Zosyn and normal saline rate lo wered to 100 mL per hour 04/10/2022 Patient still with some abdominal pain in the left lower quadrant which is improved compared to yesterday but today she has increased urinary symptoms, we ordered pyridium 2 days as she is discharged from her urinary symptoms. Other than that she is tolerating liquid diet, no vomiting, no bowel movement or passing gases. Surgery team recommended to continue with conservative management for now as patient trying to avoid surgery. 04/03/2022 Patient improved slowly and gradually, she tolerates diet, she is a liquid diet She has minimal and improving abdominal pain She has 2 episodes of vomiting overnight but this stopped in the daytime. No bowel movement. She is passing gases She remains on Zosyn, no surgical intervention Objective - Vital Signs Vital signs: Vital Signs Temp 99.8 F H 04/11/22 08:00 Pulse 73 04/11/22 08:00 Resp 18 04/11/22 08:00 BP 150/71 04/11/22 08:00 Pulse Ox 98 04/11/22 08:00 FiO2 Intake & Output 04/10/22 04/11/22 04/11/22 18:59 06:59 18:59 Intake Total 600 Output Total 0 Balance 600 Intake: Intake, IV Titration 600 Amount 0.9% NaCl with KCl 20 Meq 400 /l 1,000 ml @ 100 mls/hr IV .Q10H [facility] Rx#: [id number] Piperacillin-Tazobactam 3 200 .375 gm In Sodium Chloride 0.9% 100 ml @ 25 mls/hr IVPB Q8H [facility] Rx#: [id number] Output: Stool 0 Other: Voiding Method Toilet Toilet # Voids 2 4 # Bowel Movements 2 - Exam GENERAL: The patient is alert and oriented x3, not in any acute distress. Well developed, well nourished. HEENT: Pupils are round and equally reacting to light. EOMI. No scleral icterus. No conjunctival pallor. Normocephalic, atraumatic. No pharyngeal erythema. No thyromegaly. CARDIOVASCULAR: S1 and S2 present. No murmurs, rubs, or gallops. PULMONARY: Chest is clear to auscultation, no wheezing or crackles. -ABDOMEN: Soft, mild LLQ tenderness, nondistended, normoactive bowel sounds. No palpable organomegaly. MUSCULOSKELETAL: No joint swelling or deformity. EXTREMITIES: No cyanosis, clubbing, or pedal edema. NEUROLOGICAL: Gross neurological examination did not reveal any focal deficits. SKIN: No rashes. no petechiae. - Labs CBC & Chem 7: 04/10/22 08:05 04/10/22 08:05 Assessment and Plan Assessment: Acute diverticulitis, with intramural abscess Mild leukocytosis and sepsis with fever. Hypertension Urinary bladder irritation from acute diverticulitis Plan: This is a pleasant 56 years old female who presents with acute diverticulitis Continue with liquid diet on bowel rest Pain management IV hydration Surgery team consult Labs and medication were reviewed.. Continue same treatment. Continue with symptomatic treatment. Resume home medication. Monitor lytes and vitals. DVT and GI prophylaxis. Further recommendations depends on the clinical course of the patient DVT prophylaxis: Subcutaneous heparin GI Prophylaxis: Pepcid Prognosis is guarded
[2022-04-12] MEDS: PIPERACILLIN-TAZOBACTAM 3.375 GM in SODIUM CHLORIDE 0.9% 100 ML IVPB SCH ×3 (04:51→20:51)
[2022-04-12] MEDS: HEPARIN SODIUM,PORCINE/PF 5,000 UNIT/0.5 ML SYRINGE SQ SCH ×2 (07:37→20:55)
[2022-04-12] MEDS: 0.9% NACL WITH KCL 20 MEQ/L 1,000 ML IV SCH ×2 (07:39→12:01)
[2022-04-12 09:06] LABS: Basophils # (A) 0.07 X 10*3/uL (0.00-0.10); Basophils % (A) 0.8 %; Eosinophils % (A) 1.1 %; HCT 29.2 % (37.2-46.3); HGB 9.5 g/dL (12.0-15.0); Immature Grans, Automated 0.3 %; Lymphocytes # (A) 2.75 X 10*3/uL (0.90-5.00); Lymphocytes % (A) 31.2 %; MCH 30.4 pg (27.0-32.0); MCHC 32.5 g/dL (32.0-37.0); MCV 93.3 fL (80.0-97.0); Mean Platelet Volume 9.1 fL (9.5-12.2); Monocytes # (A) 0.91 X 10*3/uL (0.20-1.00); Monocytes % (A) 10.3 %; NRBC Per 100 WBC 0 /100 WBCS (0.0-0.0); Neutrophils # (A) 4.96 X 10*3/uL (1.80-7.70); Neutrophils % (A) 56.3 %; Platelet Count 384 X 10*3/uL (140-440); RBC 3.13 X 10*6/uL (4.10-5.20); RDW 12.9 % (11.5-14.5); WBC 8.82 X 10*3/uL (4.50-10.00)
[2022-04-12 09:17] LABS: African American GFR (CKD) 82.3 (60.0-200.0); BUN/Creat Ratio 3.56 Ratio (12.00-20.00); Blood Urea Nitrogen 3.2 mg/dL (9.0-27.0); Calcium 8.7 mg/dL (8.7-10.3); Magnesium 1.8 mg/dL (1.5-2.4); Potassium 3.5 mmol/L (3.5-5.5)
--- NOTE | 2022-04-12 14:38 | P.PN ---
Subjective Progress Note Date: 04/12/22 The patient is seen on rounds. She's feeling better. Tolerating a diet. Has had 2 bowel movements today.Denies any nausea and vomiting Objective - Vital Signs Vital signs: Vital Signs Temp 98.5 F 04/12/22 08:00 Pulse 62 04/12/22 08:00 Resp 20 04/12/22 08:00 BP 126/74 04/12/22 08:00 Pulse Ox 97 04/12/22 08:00 FiO2 Intake & Output 04/11/22 04/12/22 04/12/22 18:59 06:59 18:59 Intake Total 700 Balance 700 Intake: Intake, IV Titration 700 Amount 0.9% NaCl with KCl 20 Meq 700 /l 1,000 ml @ 100 mls/hr IV .Q10H [facility] Rx#: [id number] Other: Voiding Method Toilet Toilet # Voids 2 - Constitutional General appearance: Present: cooperative, no acute distress - Respiratory Respiratory: bilateral: CTA - Gastrointestinal General gastrointestinal: Present: normal bowel sounds, soft, tenderness (No significant tenderness, the patient says her abdomen feels significantly better than admission) - Labs CBC & Chem 7: 04/12/22 06:03 04/12/22 06:03 Labs: Abnormal Lab Results - Last 24 Hours (Table) 04/12/22 04/12/22 Range/Units 06:03 06:03 RBC 3.13 L (4.10-5.20) X 10*6/uL Hgb 9.5 L (12.0-15.0) g/dL Hct 29.2 L (37.2-46.3) % MPV 9.1 L (9.5-12.2) fL BUN 3.2 L (9.0-27.0) mg/dL BUN/Creatinine Ratio 3.56 L (12.00-20.00) Ratio Assessment and Plan (1) Diverticulitis of large intestine with abscess Current Visit: Yes Status: Acute Code(s): K57.20 - DVTRCLI OF LG INT W PERFORATION AND ABSCESS W/O BLEEDING SNOMED Code(s): 6232856 Plan: Clinically the patient is improving. Tolerating a diet and having bowel movements. We'll advance her diet. Monitor CBC, white count is down today. Temperature was down today. Progressing slowly.
--- NOTE | 2022-04-13 01:25 | P.PN ---
Subjective This is a pleasant 56 years old female with past medical history of diverticulitis and hypertension. Her PCP is Dr. Cash Because of lower abdominal pain 7 days, pain was nonspecific in nature about 6- 8/10 in severity Associated with vomiting Patient has constipation She denies smoking, alcohol or illicit Patient had low-grade fever of 100.1 upon admission Labs showed leukocytosis of 13.3 Hypokalemia at 2.7, sodium 136, creatinine 1.1. Liver enzymes not elevated. Urinalysis showing moderate leukocyte esterase and WBCs 6 CT of the abdomen and pelvis showing acute sigmoid diverticulitis with intramural abscess. Which is close to the urinary bladder and patient at risk of colovesical fistula On admission patient was started on Zosyn and normal saline 04/09/2022 Patient tolerated liquid diet with no vomiting, abdominal pain is improved but increased with movement, she is passing only gas today with no bowel movement. Her urine symptoms improving as well. Surgical team recommended continue with antibiotic treatment. Today she had a fever of 101.5. Infectious disease team consulted, currently on Zosyn and normal saline rate lo wered to 100 mL per hour 04/10/2022 Patient still with some abdominal pain in the left lower quadrant which is improved compared to yesterday but today she has increased urinary symptoms, we ordered pyridium 2 days as she is discharged from her urinary symptoms. Other than that she is tolerating liquid diet, no vomiting, no bowel movement or passing gases. Surgery team recommended to continue with conservative management for now as patient trying to avoid surgery. 04/11/2022 Patient improved slowly and gradually, she tolerates diet, she is a liquid diet She has minimal and improving abdominal pain She has 2 episodes of vomiting overnight but this stopped in the daytime. No bowel movement. She is passing gases She remains on Zosyn, no surgical intervention 04/12/2022 Patient continued to improve slowly and progressively. She was a liquid diet which is advanced into soft diet today. No more nausea vomiting, abdominal pain in the lower quadrants is minimal No more urinary symptoms. She had 2 bouts of bowel movement last night. Keep monitoring and Objective - Vital Signs Vital signs: Vital Signs Temp 98.5 F 04/12/22 08:00 Pulse 62 04/12/22 08:00 Resp 20 04/12/22 08:00 BP 126/74 04/12/22 08:00 Pulse Ox 97 04/12/22 08:00 FiO2 Intake & Output 04/11/22 04/12/22 04/12/22 18:59 06:59 18:59 Other: Voiding Method Toilet Toilet # Voids 2 - Exam GENERAL: The patient is alert and oriented x3, not in any acute distress. Well developed, well nourished. HEENT: Pupils are round and equally reacting to light. EOMI. No scleral icterus. No conjunctival pallor. Normocephalic, atraumatic. No pharyngeal erythema. No thyromegaly. CARDIOVASCULAR: S1 and S2 present. No murmurs, rubs, or gallops. PULMONARY: Chest is clear to auscultation, no wheezing or crackles. -ABDOMEN: Soft, mild LLQ tenderness, nondistended, normoactive bowel sounds. No palpable organomegaly. MUSCULOSKELETAL: No joint swelling or deformity. EXTREMITIES: No cyanosis, clubbing, or pedal edema. NEUROLOGICAL: Gross neurological examination did not reveal any focal deficits. SKIN: No rashes. no petechiae. - Labs CBC & Chem 7: 04/12/22 06:03 04/12/22 06:03 Labs: Abnormal Lab Results - Last 24 Hours (Table) 04/12/22 04/12/22 Range/Units 06:03 06:03 RBC 3.13 L (4.10-5.20) X 10*6/uL Hgb 9.5 L (12.0-15.0) g/dL Hct 29.2 L (37.2-46.3) % MPV 9.1 L (9.5-12.2) fL BUN 3.2 L (9.0-27.0) mg/dL BUN/Creatinine Ratio 3.56 L (12.00-20.00) Ratio Assessment and Plan Assessment: Acute diverticulitis, with intramural abscess Mild leukocytosis and sepsis with fever. Hypertension Urinary bladder irritation from acute diverticulitis Plan: This is a pleasant 56 years old female who presents with acute diverticulitis Continue with liquid diet on bowel rest Pain management IV hydration Surgery team consult Labs and medication were reviewed.. Continue same treatment. Continue with symptomatic treatment. Resume home medication. Monitor lytes and vitals. DVT and GI prophylaxis. Further recommendations depends on the clinical course of the patient DVT prophylaxis: Subcutaneous heparin GI Prophylaxis: Pepcid Prognosis is guarded
[2022-04-13] MEDS: PIPERACILLIN-TAZOBACTAM 3.375 GM in SODIUM CHLORIDE 0.9% 100 ML IVPB SCH ×4 (04:06→23:34)
[2022-04-13] MEDS: 0.9% NACL WITH KCL 20 MEQ/L 1,000 ML IV SCH ×2 (04:08→15:27)
[2022-04-13] MEDS: HEPARIN SODIUM,PORCINE/PF 5,000 UNIT/0.5 ML SYRINGE SQ SCH ×2 (07:30→21:43)
--- NOTE | 2022-04-13 08:56 | P.PN ---
Subjective Progress Note Date: 04/11/22 Principal diagnosis: Acute sigmoid diverticulitis Patient is a 56-year-old female presented to hospital with abdominal pain and has been diagnosed with diverticulitis. No perforation. On today's evaluation of the 04/11/2022, the patient did have a low-grade fever of 99.8F this morning however overall fever pattern has improved, patient lower abdominal pain has decreased in intensity and did have some bowel movement, denies having any urinary symptoms and no chest pain shortness of breath or cough Objective - Vital Signs Vital signs: Vital Signs Temp 99.8 F H 04/11/22 08:00 Pulse 73 04/11/22 08:00 Resp 18 04/11/22 08:00 BP 150/71 04/11/22 08:00 Pulse Ox 98 04/11/22 08:00 FiO2 Intake & Output 04/10/22 04/11/22 04/11/22 18:59 06:59 18:59 Intake Total 600 Output Total 0 Balance 600 Intake: Intake, IV Titration 600 Amount 0.9% NaCl with KCl 20 Meq 400 /l 1,000 ml @ 100 mls/hr IV .Q10H [facility] Rx#: [id number] Piperacillin-Tazobactam 3 200 .375 gm In Sodium Chloride 0.9% 100 ml @ 25 mls/hr IVPB Q8H [facility] Rx#: [id number] Output: Stool 0 Other: Voiding Method Toilet Toilet # Voids 2 4 # Bowel Movements 2 - Exam GENERAL DESCRIPTION: Middle-age female lying in bed in no distress RESPIRATORY SYSTEM: Unlabored breathing , decreased breath sounds at bases HEART: S1 S2 regular rate and rhythm , ABDOMEN: Soft , mild lower abdominal tenderness EXTREMITIES: No edema feet - Labs CBC & Chem 7: 04/12/22 06:03 04/12/22 06:03 Assessment and Plan (1) Diverticulitis Current Visit: No Status: Acute Code(s): K57.92 - DVTRCLI OF INTEST, PART UNSP, W/O PERF OR ABSCESS W/O BLEED SNOMED Code(s): 565907083 Plan: 1patient presented to hospital with abdominal pain in this patient did have previous episode of diverticulitis now with evidence of diverticulitis and concerning for intramural abscess and high risk of colovesicular fistula in this patient who do have some urinary symptoms but no pneumaturia or hematuria will need to call for the enteric gram-negative pathogen with a likely pathogen. 2patient did have slow clinical improvement and will continue with Zosyn 3.375 g daily to continue along with bowel rest. And monitor clinical course closely Time with Patient: Less than 30
--- NOTE | 2022-04-13 08:57 | P.PN ---
Subjective Progress Note Date: 04/12/22 Principal diagnosis: Acute sigmoid diverticulitis Patient is a 56-year-old female presented to hospital with abdominal pain and has been diagnosed with diverticulitis. No perforation. On today's evaluation of the 04/12/2022, the patient is afebrile today, the patient is feeling better the patient abdominal pain has improved and has been tolerating her diet no nausea no vomiting no chest pain shortness of breath or cough Objective - Vital Signs Vital signs: Vital Signs Temp 98.5 F 04/12/22 08:00 Pulse 62 04/12/22 08:00 Resp 20 04/12/22 08:00 BP 126/74 04/12/22 08:00 Pulse Ox 97 04/12/22 08:00 FiO2 Intake & Output 04/11/22 04/12/22 04/12/22 18:59 06:59 18:59 Other: Voiding Method Toilet Toilet # Voids 2 - Exam GENERAL DESCRIPTION: Middle-age female lying in bed in no distress RESPIRATORY SYSTEM: Unlabored breathing , decreased breath sounds at bases HEART: S1 S2 regular rate and rhythm , ABDOMEN: Soft , mild lower abdominal tenderness EXTREMITIES: No edema feet - Labs CBC & Chem 7: 04/12/22 06:03 04/12/22 06:03 Labs: Abnormal Lab Results - Last 24 Hours (Table) 04/12/22 04/12/22 Range/Units 06:03 06:03 RBC 3.13 L (4.10-5.20) X 10*6/uL Hgb 9.5 L (12.0-15.0) g/dL Hct 29.2 L (37.2-46.3) % MPV 9.1 L (9.5-12.2) fL BUN 3.2 L (9.0-27.0) mg/dL BUN/Creatinine Ratio 3.56 L (12.00-20.00) Ratio Assessment and Plan (1) Diverticulitis Current Visit: No Status: Acute Code(s): K57.92 - DVTRCLI OF INTEST, PART UNSP, W/O PERF OR ABSCESS W/O BLEED SNOMED Code(s): 865635896 Plan: 1patient presented to hospital with abdominal pain in this patient did have previous episode of diverticulitis now with evidence of diverticulitis and c oncerning for intramural abscess and high risk of colovesicular fistula in this patient who do have some urinary symptoms but no pneumaturia or hematuria will need to call for the enteric gram-negative pathogen with a likely pathogen. 2patient is slowly clinical improvement and white count has normalized, patient will continue with the current treatment of with Zosyn 3.375 g every 8 hour and monitor clinical course closely Time with Patient: Less than 30
[2022-04-13 10:31] LABS: Basophils # (A) 0.07 X 10*3/uL (0.00-0.10); Basophils % (A) 0.9 %; Eosinophils # (A) 0.11 X 10*3/uL (0.04-0.35); Eosinophils % (A) 1.4 %; HCT 29.7 % (37.2-46.3); HGB 9.8 g/dL (12.0-15.0); Immature Grans, Automated 0.5 %; Lymphocytes # (A) 2.66 X 10*3/uL (0.90-5.00); MCH 30.7 pg (27.0-32.0); MCV 93.1 fL (80.0-97.0); Mean Platelet Volume 9.4 fL (9.5-12.2); Monocytes # (A) 0.95 X 10*3/uL (0.20-1.00); Monocytes % (A) 11.8 %; NRBC Per 100 WBC 0 /100 WBCS (0.0-0.0); Neutrophils # (A) 4.22 X 10*3/uL (1.80-7.70); Neutrophils % (A) 52.4 %; Platelet Count 415 X 10*3/uL (140-440); RBC 3.19 X 10*6/uL (4.10-5.20); RDW 12.9 % (11.5-14.5); WBC 8.05 X 10*3/uL (4.50-10.00)
[2022-04-13 10:51] LABS: African American GFR (CKD) 72.4 (60.0-200.0); Anion Gap 13.9 mmol/L (10.00-18.00); BUN/Creat Ratio 2.3 Ratio (12.00-20.00); Blood Urea Nitrogen 2.3 mg/dL (9.0-27.0); Calcium 8.9 mg/dL (8.7-10.3); Carbon Dioxide 25.1 mmol/L (20.0-27.5); Magnesium 2.1 mg/dL (1.5-2.4); Non-African American GFR(CKD) 62.5 (60.0-200.0); Potassium 3.5 mmol/L (3.5-5.5)
[2022-04-13 13:46] VITALS: BMI 37.0
--- NOTE | 2022-04-13 14:06 | P.PN ---
Subjective Progress Note Date: 04/13/22 Patient seen and examined at bedside. States abdominal pain has completely resolved. Having bowel movements. Objective - Vital Signs Vital signs: Vital Signs Temp 98.8 F 04/13/22 08:00 Pulse 77 04/13/22 08:00 Resp 14 04/13/22 08:00 BP 146/78 04/13/22 08:00 Pulse Ox 96 04/13/22 08:00 FiO2 Intake & Output 04/12/22 04/13/22 04/13/22 18:59 06:59 18:59 Intake Total 200 Balance 200 Weight 97.976 kg Intake: Intake, IV Titration 200 Amount 0.9% NaCl with KCl 20 Meq 200 /l 1,000 ml @ 100 mls/hr IV .Q10H [facility] Rx#: [id number] Other: Voiding Method Toilet Toilet # Voids 3 2 # Bowel Movements 1 - Constitutional General appearance: Present: cooperative - Gastrointestinal Gastrointestinal Comment(s): Soft, nontender, nondistended, no rebound, no guarding - Psychiatric Psychiatric: Present: A&O x's 3 - Labs CBC & Chem 7: 04/13/22 06:24 04/13/22 06:24 Labs: Abnormal Lab Results - Last 24 Hours (Table) 04/13/22 04/13/22 Range/Units 06:24 06:24 RBC 3.19 L (4.10-5.20) X 10*6/uL Hgb 9.8 L (12.0-15.0) g/dL Hct 29.7 L (37.2-46.3) % MPV 9.4 L (9.5-12.2) fL Sodium 146 H (135-145) mmol/L BUN 2.3 L (9.0-27.0) mg/dL BUN/Creatinine Ratio 2.30 L (12.00-20.00) Ratio Assessment and Plan Plan: 56-year-old female with acute diverticulitis and intramural abscess. Patient has had significant improvement in her symptoms during her total admission. Diet has been advanced. At this point, no plan for surgical intervention based on her clinical progress. Surgically stable for discharge. I would recommend home antibiotics on discharge.
[2022-04-13] MEDS: ACETAMINOPHEN TAB 325 MG TAB PO PRN (14:56)
--- NOTE | 2022-04-13 20:25 | P.PN ---
Subjective This is a pleasant 56 years old female with past medical history of diverticulitis and hypertension. Her PCP is Dr. Cash Because of lower abdominal pain 7 days, pain was nonspecific in nature about 6- 8/10 in severity Associated with vomiting Patient has constipation She denies smoking, alcohol or illicit Patient had low-grade fever of 100.1 upon admission Labs showed leukocytosis of 13.3 Hypokalemia at 2.7, sodium 136, creatinine 1.1. Liver enzymes not elevated. Urinalysis showing moderate leukocyte esterase and WBCs 6 CT of the abdomen and pelvis showing acute sigmoid diverticulitis with intramural abscess. Which is close to the urinary bladder and patient at risk of colovesical fistula On admission patient was started on Zosyn and normal saline 04/09/2022 Patient tolerated liquid diet with no vomiting, abdominal pain is improved but increased with movement, she is passing only gas today with no bowel movement. Her urine symptoms improving as well. Surgical team recommended continue with antibiotic treatment. Today she had a fever of 101.5. Infectious disease team consulted, currently on Zosyn and normal saline rate lo wered to 100 mL per hour 04/10/2022 Patient still with some abdominal pain in the left lower quadrant which is improved compared to yesterday but today she has increased urinary symptoms, we ordered pyridium 2 days as she is discharged from her urinary symptoms. Other than that she is tolerating liquid diet, no vomiting, no bowel movement or passing gases. Surgery team recommended to continue with conservative management for now as patient trying to avoid surgery. 04/11/2022 Patient improved slowly and gradually, she tolerates diet, she is a liquid diet She has minimal and improving abdominal pain She has 2 episodes of vomiting overnight but this stopped in the daytime. No bowel movement. She is passing gases She remains on Zosyn, no surgical intervention 04/12/2022 Patient continued to improve slowly and progressively. She was a liquid diet which is advanced into soft diet today. No more nausea vomiting, abdominal pain in the lower quadrants is minimal No more urinary symptoms. She had 2 bouts of bowel movement last night. Keep monitoring 04/13/2022 Patient continued to improve each day that by little. She is tolerating diet well, her abdominal pain almost resolved, she is having bowel movements. Surgery team has cleared The patient for discharge Infectious disease team recommended to continue with IV antibiotic given her intramural up says Discontinue IV fluid Possible discharge in 24-48 hours if she keeps improving Objective - Vital Signs Vital signs: Vital Signs Temp 99.3 F 04/13/22 14:00 Pulse 71 04/13/22 14:00 Resp 16 04/13/22 14:00 BP 142/84 04/13/22 14:00 Pulse Ox 100 04/13/22 14:00 FiO2 Intake & Output 04/13/22 04/13/22 04/14/22 06:59 18:59 06:59 Intake Total 200 Balance 200 Weight 97.976 kg Intake: Intake, IV Titration 200 Amount 0.9% NaCl with KCl 20 Meq 200 /l 1,000 ml @ 100 mls/hr IV .Q10H [facility] Rx#: [id number] Other: Voiding Method Toilet # Voids 2 4 # Bowel Movements 1 - Exam GENERAL: The patient is alert and oriented x3, not in any acute distress. Well developed, well nourished. HEENT: Pupils are round and equally reacting to light. EOMI. No scleral icterus. No conjunctival pallor. Normocephalic, atraumatic. No pharyngeal erythema. No thyromegaly. CARDIOVASCULAR: S1 and S2 present. No murmurs, rubs, or gallops. PULMONARY: Chest is clear to auscultation, no wheezing or crackles. -ABDOMEN: Soft, mild LLQ tenderness, nondistended, normoactive bowel sounds. No palpable organomegaly. MUSCULOSKELETAL: No joint swelling or deformity. EXTREMITIES: No cyanosis, clubbing, or pedal edema. NEUROLOGICAL: Gross neurological examination did not reveal any focal deficits. SKIN: No rashes. no petechiae. - Labs CBC & Chem 7: 04/13/22 06:24 04/13/22 06:24 Labs: Abnormal Lab Results - Last 24 Hours (Table) 04/13/22 04/13/22 Range/Units 06:24 06:24 RBC 3.19 L (4.10-5.20) X 10*6/uL Hgb 9.8 L (12.0-15.0) g/dL Hct 29.7 L (37.2-46.3) % MPV 9.4 L (9.5-12.2) fL Sodium 146 H (135-145) mmol/L BUN 2.3 L (9.0-27.0) mg/dL BUN/Creatinine Ratio 2.30 L (12.00-20.00) Ratio Assessment and Plan Assessment: Acute diverticulitis, with intramural abscess Mild leukocytosis and sepsis with fever. Hypertension Urinary bladder irritation from acute diverticulitis Plan: This is a pleasant 56 years old female who presents with acute diverticulitis Advance diet as tolerated Is minimal IV discontinue IV fluids Surgery team consult. The patient for discharge. Patient instructed to follow up with Dr. Corrales in 1-2 weeks for possible colonoscopy and she verbalized understanding and acceptance Labs and medication were reviewed.. Continue same treatment. Continue with symptomatic treatment. Resume home medication. Monitor lytes and vitals. DVT and GI prophylaxis. Further recommendations depends on the clinical course of the patient DVT prophylaxis: Subcutaneous heparin GI Prophylaxis: Pepcid Prognosis is guarded
[2022-04-14 02:02] VITALS: RESP 18
[2022-04-14] MEDS: 0.9% NACL WITH KCL 20 MEQ/L 1,000 ML IV SCH (05:57)
[2022-04-14 07:12] LABS: Basophils # (A) 0.1 k/uL (0-0.2); Basophils % (A) 1 %; Eosinophils # (A) 0.2 k/uL (0-0.7); Eosinophils % (A) 2 %; HCT 32.4 % (34.0-46.0); HGB 10.9 gm/dL (11.4-16.0); Lymphocytes # (A) 2.3 k/uL (1.0-4.8); Lymphocytes % (A) 29 %; MCH 31.8 pg (25.0-35.0); MCHC 33.6 g/dL (31.0-37.0); Mean Platelet Volume 7.2; Monocytes # (A) 0.5 k/uL (0-1.0); Monocytes % (A) 6 %; Neutrophils # (A) 4.6 k/uL (1.3-7.7); Neutrophils % (A) 58 %; Platelet Count 513 k/uL (150-450); RBC 3.42 m/uL (3.80-5.40); RDW 13.1 % (11.5-15.5); WBC 7.9 k/uL (3.8-10.6)
[2022-04-14 07:25] LABS: ALT 25 U/L (4-34); AST 31 U/L (14-36); African American GFR (CKD) 70 (>60 ml/min/1.73 sqM); Albumin 3.4 g/dL (3.5-5.0); Albumin/Globulin Ratio 1.1; Alkaline Phosphatase 63 U/L (38-126); Anion Gap 10 mmol/L; Blood Urea Nitrogen 4 mg/dL (7-17); Carbon Dioxide 28 mmol/L (22-30); Chloride 108 mmol/L (98-107); Glucose 94 mg/dL (74-99); Non-African American GFR(CKD) 61 (>60 ml/min/1.73 sqM); Potassium 3.3 mmol/L (3.5-5.1); Sodium 146 mmol/L (137-145); Total Bilirubin 0.2 mg/dL (0.2-1.3); Total Protein 6.4 g/dL (6.3-8.2)
[2022-04-14 07:29] LABS: MCV 94.8 fL (80.0-100.0)
[2022-04-14] MEDS: HEPARIN SODIUM,PORCINE/PF 5,000 UNIT/0.5 ML SYRINGE SQ SCH (08:23)
[2022-04-14] MEDS: PIPERACILLIN-TAZOBACTAM 3.375 GM in SODIUM CHLORIDE 0.9% 100 ML IVPB SCH (08:24)
[2022-04-14 08:26] VITALS: BP 144/78; PULSE 72; TEMP 98.5
[2022-04-14] MEDS: POTASSIUM CHLORIDE ER 20 MEQ TAB.ER PO SCH (08:56)
--- NOTE | 2022-04-14 09:18 | P.PN ---
Subjective Progress Note Date: 04/13/22 Principal diagnosis: Acute sigmoid diverticulitis Patient is a 56-year-old female presented to hospital with abdominal pain and has been diagnosed with diverticulitis. No perforation. On today's evaluation of the 04/13/2022, the patient remains to be afebrile, the patient complaining of some lower abdominal pain after she did have tomato soup of yesterday, however denies nausea no vomiting no chest pain shortness of breath or cough Objective - Vital Signs Vital signs: Vital Signs Temp 98.8 F 04/13/22 08:00 Pulse 77 04/13/22 08:00 Resp 14 04/13/22 08:00 BP 146/78 04/13/22 08:00 Pulse Ox 96 04/13/22 08:00 FiO2 Intake & Output 04/12/22 04/13/22 04/13/22 18:59 06:59 18:59 Intake Total 200 Balance 200 Intake: Intake, IV Titration 200 Amount 0.9% NaCl with KCl 20 Meq 200 /l 1,000 ml @ 100 mls/hr IV .Q10H [facility] Rx#: [id number] Other: Voiding Method Toilet Toilet # Voids 3 2 # Bowel Movements 1 - Exam GENERAL DESCRIPTION: Middle-age female lying in bed in no distress RESPIRATORY SYSTEM: Unlabored breathing , decreased breath sounds at bases HEART: S1 S2 regular rate and rhythm , ABDOMEN: Soft , mild lower abdominal tenderness EXTREMITIES: No edema feet - Labs CBC & Chem 7: 04/14/22 06:55 04/14/22 06:55 Labs: Abnormal Lab Results - Last 24 Hours (Table) 04/13/22 04/13/22 Range/Units 06:24 06:24 RBC 3.19 L (4.10-5.20) X 10*6/uL Hgb 9.8 L (12.0-15.0) g/dL Hct 29.7 L (37.2-46.3) % MPV 9.4 L (9.5-12.2) fL Sodium 146 H (135-145) mmol/L BUN 2.3 L (9.0-27.0) mg/dL BUN/Creatinine Ratio 2.30 L (12.00-20.00) Ratio Assessment and Plan (1) Diverticulitis Current Visit: No Status: Acute Code(s): K57.92 - DVTRCLI OF INTEST, PART UNSP, W/O PERF OR ABSCESS W/O BLEED SNOMED Code(s): 754732572 Plan: 1patient presented to hospital with abdominal pain in this patient did have previous episode of diverticulitis now with evidence of diverticulitis and concerning for intramural abscess and high risk of colovesicular fistula in this patient who do have some urinary symptoms but no pneumaturia or hematuria will need to call for the enteric gram-negative pathogen with a likely pathogen. 2patient did have some clinical improvement and white count has normalized however was complaining of some discomfort after oral intake yesterday. We'll hold the discharge for a 24-hour continue with the Zosyn and if continued to improve to finish therapy with oral Ceftin and Flagyl Time with Patient: Less than 30
[2022-04-14] MEDS ORDERED: POTASSIUM CHLORIDE ER 20 MEQ TAB.ER PO STA (12:44)
--- NOTE | 2022-04-14 15:19 | P.PN ---
Subjective Progress Note Date: 04/14/22 Principal diagnosis: Acute sigmoid diverticulitis Patient is a 56-year-old female presented to hospital with abdominal pain and has been diagnosed with diverticulitis. No perforation. On today's evaluation of the 04/14/2022, the patient denies any fever or chills, the patient is feeling better has been able to tolerate her diet no nausea no vomiting no chest pain shortness of breath or cough. The patient is feeling better wants to go home Objective - Vital Signs Vital signs: Vital Signs Temp 98.5 F 04/14/22 08:25 Pulse 72 04/14/22 08:25 Resp 18 04/14/22 08:25 BP 144/78 04/14/22 08:25 Pulse Ox 97 04/14/22 08:25 FiO2 Intake & Output 04/13/22 04/14/22 04/14/22 18:59 06:59 18:59 Intake Total 100 100 Balance 100 100 Weight 97.976 kg Intake: Intake, IV Titration 100 100 Amount Piperacillin-Tazobactam 3 100 100 .375 gm In Sodium Chloride 0.9% 100 ml @ 25 mls/hr IVPB Q8HR [facility] Rx# :[id number] Other: # Voids 4 3 - Exam GENERAL DESCRIPTION: Middle-age female lying in bed in no distress RESPIRATORY SYSTEM: Unlabored breathing , decreased breath sounds at bases HEART: S1 S2 regular rate and rhythm , ABDOMEN: Soft , no tenderness EXTREMITIES: No edema feet - Labs CBC & Chem 7: 04/14/22 06:55 04/14/22 12:30 Labs: Abnormal Lab Results - Last 24 Hours (Table) 04/14/22 04/14/22 Range/Units 06:55 06:55 RBC 3.42 L (3.80-5.40) m/uL Hgb 10.9 L (11.4-16.0) gm/dL Hct 32.4 L (34.0-46.0) % Plt Count 513 H (150-450) k/uL Sodium 146 H (137-145) mmol/L Potassium 3.3 L (3.5-5.1) mmol/L Chloride 108 H (98-107) mmol/L BUN 4 L (7-17) mg/dL Albumin 3.4 L (3.5-5.0) g/dL Assessment and Plan (1) Diverticulitis Status: Acute Code(s): K57.92 - DVTRCLI OF INTEST, PART UNSP, W/O PERF OR ABSCESS W/O BLEED SNOMED Code(s): 104212021 Plan: 1patient presented to hospital with abdominal pain in this patient did have previous episode of diverticulitis now with evidence of diverticulitis and concerning for intramural abscess and high risk of colovesicular fistula in this patient who do have some urinary symptoms but no pneumaturia or hematuria will need to call for the enteric gram-negative pathogen with a likely pathogen. 2patient did have some clinical improvement and white count has normalized, the patient had loss IV Zosyn will be discontinued prescription for oral Ceftin and Flagyl 10 days has been sent to the pharmacy, patient has been educated about diverticulosis/diverticulitis diet and close outpatient follow-up Time with Patient: Less than 30
--- NOTE | 2022-04-14 22:48 | P.DS ---
Providers Date of admission: 04/08/22 11:47 Attending physician: Genie Nguyen Consults: 04/08/22 11:46 Consult Physician Routine Consulting Provider: Florin Corrales Consult Reason/Comments: complex diverticulitis Do you want consulting provider notified?: Already Contacted 04/08/22 11:47 Consult Physician Routine Consulting Provider: Ryan Hernandez Consult Reason/Comments: intraabdominal infection Do you want consulting provider notified?: Yes Primary care physician: Clemente Cash Hospital Course: Diagnoses: Acute diverticulitis, with intramural abscess, and treated conservatively with antibiotic, significantly improved upon discharge Mild leukocytosis and sepsis with fever. Resolved Hypertension Urinary bladder irritation from acute diverticulitis Hospital course: This is a pleasant 56 years old female with past medical history of diverticulitis and hypertension. Her PCP is Dr. Cash Because of lower abdominal pain 7 days, also patient had some urinary retention. (CT of the abdomen and pelvis showing acute sigmoid diverticulitis with intramural abscess. Which is close to the urinary bladder and patient at risk of colovesical fistula). Patient evaluated by surgery team and infectious disease team. She was treated with IV Zosyn. She showed significant improvement improvement and almost back to normal self. On the day of discharge she tolerates diet well, no vomiting or nausea, abdominal pain and urinary symptoms completely resolved area Also patient denies any other symptoms, no chest pain or dyspnea. No no fever. Patient was cleared for discharge by surgery team and infectious disease team. Patient will be discharged on short course of oral antibiotics per ID team will send a prescription to the pharmacy. So patient instructed to follow up with his surgeon Dr. Corrales for possible colonoscopy and she verbalized understanding and acceptance Problems and management plan were discussed with the patient and he verbalized understanding and acceptance Patient was found stable and can be discharged home however he needs follow-up as an outpatient. Patient was instructed to follow up with PCP Dr. Cash within one week and patient agrees Patient was instructed to follow up with the surgeon Dr. Corrales in 1-2 weeks and she agrees Physical exam Gen: patient is a AAOx3, no distress CVS: S1-S2, RRR, no murmur Lungs: B/L CTA, no wheezing Abdomen: soft, no distention, no tenderness, positive bowel sounds Extremity: no leg edema or induration Time spent more than 35 minutes Patient Condition at Discharge: Serious Plan - Discharge Summary Discharge Rx Participant: No New Discharge Prescriptions: New cefUROXime axetiL [Ceftin] 500 mg PO BID 10 Days #20 tab metroNIDAZOLE [Flagyl] 500 mg PO TID #30 tab Continue Valsartan 160 mg PO DAILY Discontinued Cetirizine HCl [Zyrtec] 10 mg PO DAILY PRN PRN Reason: Allergy Symptoms hydroCHLOROthiazide [Hydrodiuril] 12.5 mg PO DAILY Discharge Medication List Valsartan 160 mg PO DAILY 04/08/22 [History] cefUROXime axetiL [Ceftin] 500 mg PO BID 10 Days #20 tab 04/14/22 [Rx] metroNIDAZOLE [Flagyl] 500 mg PO TID #30 tab 04/14/22 [Rx] Follow up Appointment(s)/Referral(s): Clemente Cash DO [Primary Care Provider] - 04/19/22 3:00 pm Florin Corrales DO [Doctor of Osteopathic Medicine] - 2 Weeks (we recommend colonoscopy as an outpatient) Patient Instructions/Handouts: Diverticulitis (DC), Low Fiber Diet (DC) Activity/Diet/Wound Care/Special Instructions: Low fiber diet Activity is restricted till you see your doctor Discharge Disposition: HOME SELF-CARE
== END 2022-04-14 14:50 | disposition home or self-care (01) | DRG 872 ==
LOC: EC 09:20 → 4SSUR 11:47
PROVIDERS: ADMIT Hospitalist; ATTEND Hospitalist
DX: A41.50 Gram-negative sepsis, unspecified (principal); K57.20 Diverticulitis of large intestine with perforation and abscess without bleeding; E87.6 Hypokalemia; I10 Essential (primary) hypertension; R33.8 Other retention of urine; J40 Bronchitis, not specified as acute or chronic; K59.00 Constipation, unspecified; Z79.811 Long term (current) use of aromatase inhibitors; Z79.899 Other long term (current) drug therapy; Z87.891 Personal history of nicotine dependence; Z90.49 Acquired absence of other specified parts of digestive tract
CPT/HCPCS: 36415; 74177; 80048; 80053; 81001; 83735; 84132; 85025; 85027; 96365; 99285

== ENCOUNTER → 2022-10-18 | Outpatient (CLI) | payer OTHER ==
--- NOTE | 2022-10-18 15:09 | MM ---
Reason for Exam: Follow-up at short interval from prior study. Last mammogram was performed 2 year(s) and 4 month(s) ago. Patient History: Menarche at age 15. Breast cancer, age 55. 07/22/2020, Malignant Core Biopsy on the left side. Maternal grandmother had breast cancer. Mother had breast cancer, age 48. Tissue Density: The breast tissue is extremely dense which could obscure a lesion on mammography. Findings: Analyzed By CAD. There is a spiculated density with punctate calcifications highly suggestive for malignancy within the left breast. This was previously diagnosed as breast cancer. Findings appear similar to 07/09/2020 comparison study. Number of punctate calcifications may have diminished over the interval. Distortion remains present within the left breast. Right breast appears stable. No significant interval change of the right breast is evident. Overall Assessment: Known biopsy proven malignancy, BI-RAD 6 Management: Surgical Consultation of the left breast. A clinical breast exam by your physician is recommended on an annual basis and results should be correlated with mammographic findings. This exam should not preclude additional follow-up of suspicious palpable abnormalities. Results were given to the patient verbally at the time of exam. Electronically signed and approved by: Dylan Mayberry D.O. Radiologis
== END | disposition home or self-care (01) ==
LOC: RADMAMWWP 14:10
PROVIDERS: ATTEND Family Medicine
DX: C50.912 Malignant neoplasm of unspecified site of left female breast (principal); Z80.3 Family history of malignant neoplasm of breast; Z98.890 Other specified postprocedural states
CPT/HCPCS: 77066; G0279; 77062

== ENCOUNTER → 2023-07-24 | Outpatient (CLI) | payer OTHER ==
--- NOTE | 2023-07-24 14:50 | US ---
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 TECHNIQUE: FINDINGS/IMPRESSION: Scanned right groin area two hypoechoic areas seen measuring .5 cm. One demonst rates normal central fatty hilum and are consistent with benign-appearing lymph nodes.
== END | disposition home or self-care (01) ==
LOC: RADUSWWP 13:45
PROVIDERS: ATTEND Internal Medicine Hematology & Oncology
DX: Z03.89 Encounter for observation for other suspected diseases and conditions ruled out (principal); C50.112 Malignant neoplasm of central portion of left female breast

== ENCOUNTER 2023-12-11 07:03 | Emergency (ER) | payer OTHER ==
[2023-12-11 07:33] VITALS: RESP 18
--- NOTE | 2023-12-11 07:35 | ED ---
URI HPI - General Chief Complaint: Upper Respiratory Infection Stated Complaint: Dry cough, congestion, difficulty breathing Time Seen by Provider: 12/11/23 07:16 Source: patient, RN notes reviewed Mode of arrival: ambulatory Limitations: no limitations - History of Present Illness Initial Comments: 58-year-old female presents emergency department complaint shortness of breath, cough congestion. Patient states she has been sick for 1 week. Patient was seen at urgent care and was diagnosed with acute bronchitis. Patient was given steroids. She states has not helped. She has been using her inhaler. She states that she has recurrent bronchitis issues. - Related Data Home Medications Medication Instructions Recorded Confirmed Valsartan 160 mg PO DAILY 04/08/22 04/08/22 Previous Rx's Medication Instructions Recorded cefUROXime axetiL [Ceftin] 500 mg PO BID 10 Days #20 tab 04/14/22 metroNIDAZOLE [Flagyl] 500 mg PO TID #30 tab 04/14/22 Allergies Allergy/AdvReac Type Severity Reaction Status Date / Time No Known Allergies Allergy Verified 04/08/22 12:47 Review of Systems ROS Statement: Those systems with pertinent positive or pertinent negative responses have been documented in the HPI. ROS Other: All systems not noted in ROS Statement are negative. Past Medical History Past Medical History: Hypertension Additional Past Medical History / Comment(s): Heart murmur, bronchitis, diverticulitis History of Any Multi-Drug Resistant Organisms: None Reported Past Surgical History: Cholecystectomy Additional Past Surgical History / Comment(s): tubal - surgery Past Anesthesia/Blood Transfusion Reactions: No Reported Reaction Past Psychological History: No Psychological Hx Reported Smoking Status: Former smoker Past Alcohol Use History: Occasional Past Drug Use History: None Reported - Past Family History Father Family Medical History: Renal Disease Mother Additional Family Medical History / Comment(s): from [facility] General Exam Limitations: no limitations General appearance: alert, in no apparent distress Head exam: Present: atraumatic, normocephalic, normal inspection Eye exam: Present: normal appearance, PERRL, EOMI. Absent: scleral icterus, conjunctival injection, periorbital swelling ENT exam: Present: normal exam, normal oropharynx, mucous membranes moist Neck exam: Present: normal inspection, full ROM. Absent: tenderness, meningismus, lymphadenopathy Respiratory exam: Present: normal lung sounds bilaterally. Absent: respiratory distress, wheezes, rales, rhonchi, stridor Cardiovascular Exam: Present: regular rate, normal rhythm, normal heart sounds. Absent: systolic murmur, diastolic murmur, rubs, gallop, clicks Course Vital Signs 12/11/23 12/11/23 12/11/23 07:13 07:23 08:40 Temperature 99.6 F 99.2 F Pulse Rate 96 76 66 Respiratory 18 18 18 Rate Blood Pressure 117/77 127/68 123/69 O2 Sat by Pulse 98 97 99 Oximetry Medical Decision Making - Medical Decision Making Was pt. sent in by a medical professional or institution (HERBERT Knott, [employer], urgent care, hospital, or long term...) When possible be specific @ -No Did you speak to anyone other than the patient for history (EMS, parent, family, police, friend...)? What history was obtained from this source @ -No Did you review nursing and triage notes (agree or disagree)? Why? @ -I reviewed and agree with nursing and triage notes Were old charts reviewed (outside hosp., previous admission, EMS record, old EKG, old radiological studies, urgent care reports/EKG's, long term records)? Report findings @ -No old charts were reviewed Differential Diagnosis (chest pain, altered mental status, abdominal pain women, abdominal pain men, vaginal bleeding, weakness, fever, dyspnea, syncope, headache, dizziness, GI bleed, back pain, seizure, CVA, palpatations, mental health, musculoskeletal)? @ -\COVID 19, RSV, influenza, pneumonia, acute bronchitis, URI, this list is not all inclusive EKG interpreted by me (3pts min.). @ -None X-rays interpreted by me (1pt min.). @ -Chest x-ray shows no acute cardiopulmonary process CT interpreted by me (1pt min.). @ -None done U/S interpreted by me (1pt. min.). @ -None done What testing was considered but not performed or refused? (CT, X-rays, U/S, labs)? Why? @ -None What meds were considered but not given or refused? Why? @ -None Did you discuss the management of the patient with other professionals (professionals i.e. HERBERT Knott, [employer], lab, RT, psych nurse, vp digital marketing social media and crm, placement specialist, teacher, lead security officer, piano case maker)? Give summary @ -No Was smoking cessation discussed for >3mins.? @ -No Was critical care preformed (if so, how long)? @ -No Were there social determinants of health that impacted care today? How? (Ho melessness, low income, unemployed, alcoholism, drug addiction, transportation, low edu. Level, literacy, decrease access to med. care, shelter, rehab)? @ -No Was there de-escalation of care discussed even if they declined (Discuss DNR or withdrawal of care, Hospice)? DNR status @ -No What co-morbidities impacted this encounter? (DM, HTN, Smoking, COPD, CAD, Cancer, CVA, ARF, Chemo, Hep., AIDS, mental health diagnosis, sleep apnea, morbid obesity)? @ -None Was patient admitted / discharged? Hospital course, mention meds given and route, prescriptions, significant lab abnormalities, going to OR and other pertinent info. @ -Discharge patient is influenza A positive chest x-ray is unremarkable patient is in no signs distress discharged in stable condition. Undiagnosed new problem with uncertain prognosis? @ -No Drug Therapy requiring intensive monitoring for toxicity (Heparin, Nitro, Insulin, Cardizem)? @ -No Were any procedures done? @ -No Diagnosis/symptom? @ -Influenza A Acute, or Chronic, or Acute on Chronic? @ -Acute Uncomplicated (without systemic symptoms) or Complicated (systemic symptoms)? @ -Uncomplicated Side effects of treatment? @ -No Exacerbation, Progression, or Severe Exacerbation? @ -No Poses a threat to life or bodily function? How? (Chest pain, [place], NH, pneumonia, PE, COPD, DKA, ARF, appy, cholecystitis, CVA, Diverticulitis, Homicidal, Suicidal, threat to staff... and all critical care pts) @ -No - Lab Data Lab Results 12/11/23 Range/Units 07:31 Influenza Type A (PCR) Detected A (Not Detectd) Influenza Type B (PCR) Not Detected (Not Detectd) RSV (PCR) Not Detected (Not Detectd) SARS-CoV-2 (PCR) Not Detected (Not Detectd) Disposition Clinical Impression: Influenza A Disposition: HOME SELF-CARE Condition: Stable Instructions (If sedation given, give patient instructions): Influenza (ED) Additional Instructions: Please return to the Emergency Department if symptoms worsen or any other concerns. Is patient prescribed a controlled substance at d/c from ED?: No Referrals: Valeri Davis NPC [Family Provider] - 1-2 days Time of Disposition: 08:33
--- NOTE | 2023-12-11 08:04 | XR ---
EXAMINATION TYPE: XR chest 2V DATE OF EXAM: 12/11/2023 COMPARISON: 10/06/2019 INDICATION: Short of breath cough congestion TECHNIQUE: Frontal and lateral views of the chest are obtained. FINDINGS: The heart size is normal. The pulmonary vasculature is normal. The lungs are clear. IMPRESSION: 1. No acute pulmonary process.
[2023-12-11 09:12] VITALS: BP 123/69; PULSE 66; TEMP 99.2
== END 2023-12-11 08:48 | disposition home or self-care (01) ==
LOC: EC 07:03
DX: J10.1 Influenza due to other identified influenza virus with other respiratory manifestations (principal); I10 Essential (primary) hypertension; Z87.891 Personal history of nicotine dependence; Z79.899 Other long term (current) drug therapy; Z20.822 Contact with and (suspected) exposure to COVID-19
CPT/HCPCS: 71046; 87636; 99285

== ENCOUNTER → 2024-01-07 | Outpatient (CLI) | payer OTHER ==
--- NOTE | 2024-01-07 12:31 | CA ---
Transthoracic Echo Report Name: Leonie Chavarria Age: 58 Gender: F : 1965 Exam Date: 01/07/2024 08:47 Exam Location: [place] [facility] Ht (in): 64 Wt (lb): 214 Ordering Physician: Clemente Cash DO Attending/Referring Phys: Valeri Davis NPC [employer] Mary Burton RCS Procedure CPT: Indications: Z92.3 PERS HX IRRADIATION Cardiac Hx: Technical Quality: Technically difficult study Contrast 1: Definity Total Dose (mL): 2 Contrast 2: Total Dose (mL): MEASUREMENTS (Male / Female) Normal Values 2D ECHO LV Diastolic Diameter PLAX 4.8 cm 4.2 - 5.9 / 3.9 - 5.3 cm LV Systolic Diameter PLAX 2.9 cm IVS Diastolic Thickness 1.4 cm 0.6 - 1.0 / 0.6 - 0.9 cm LVPW Diastolic Thickness 0.8 cm 0.6 - 1.0 / 0.6 - 0.9 cm LV Relative Wall Thickness 0.5 RV Internal Dim ED PLAX 2.2 cm LVOT Diameter 1.9 cm Aortic Root Diameter 2.9 cm LV Diastolic Volume MOD BP 88.6 cm??? 67 - 155 / 56 - 104 cm??? LV Systolic Volume MOD BP 40.4 cm??? 22 - 58 / 19 - 49 cm??? LV Ejection Fraction MOD BP 54.4 % >= 55 % LV Cardiac Index MOD BP 1623.5 cm???/min???m??? LV Diastolic Volume MOD 4C 99.3 cm??? LV Systolic Volume MOD 4C 44.4 cm??? LV Ejection Fraction MOD 4C 55.3 % LV Cardiac Index MOD 4C 1848.5 cm???/min???m??? LV Diastolic Length 4C 8.0 cm LV Systolic Length 4C 7.3 cm LV Diastolic Volume MOD 2C 76.7 cm??? LV Systolic Volume MOD 2C 31.8 cm??? LV Ejection Fraction MOD 2C 58.5 % LV Cardiac Index MOD 2C 1509.2 cm???/min???m??? LV Diastolic Length 2C 7.7 cm LV Systolic Length 2C 6.3 cm LA Volume 57.3 cm??? 18 - 58 / 22 - 52 cm??? LA Volume Index 26.8 cm???/m??? 16 - 28 cm???/m??? Ascending Aorta Diameter 3.0 cm DOPPLER AV Peak Velocity 141.6 cm/s AV Peak Gradient 8.0 mmHg AV Mean Velocity 97.0 cm/s AV Mean Gradient 4.2 mmHg AV Velocity Time Integral 28.4 cm LVOT Peak Velocity 114.7 cm/s LVOT Peak Gradient 5.3 mmHg LVOT Velocity Time Integral 22.1 cm LVOT Stroke Volume 65.7 cm??? LVOT Stroke Volume Index 32.6 ml/m??? LVOT Cardiac Index 2212.7 cm???/min???m??? AV Area Cont Eq vti 2.3 cm??? AV Area Cont Eq pk 2.4 cm??? MV Area PHT 3.0 cm??? Mitral E Point Velocity 48.0 cm/s Mitral A Point Velocity 54.4 cm/s Mitral E to A Ratio 0.9 MV Deceleration Time 249.8 ms PV Peak Velocity 149.3 cm/s PV Peak Gradient 8.9 mmHg FINDINGS Left Ventricle Left ventricular ejection fraction is estimated at 55-60 %. Moderately increased septal wall thickness. Left ventricular cavity size normal. No obvious regional wall motion abnormalities. Right Ventricle Normal right ventricular size and function. Unable to estimate right ventricular systolic function. Right Atrium Normal right atrial size. Left Atrium Mildly increased left atrial volume. Mitral Valve Structurally normal mitral valve. No mitral stenosis, regurgitation or prolapse. Aortic Valve Trileaflet aortic valve. Focal thickening of the aortic valve cusps. No aortic valve stenosis or regurgitation. Tricuspid Valve Structurally normal tricuspid valve. No tricuspid stenosis, regurgitation or prolapse. Pulmonic Valve Structurally normal pulmonic valve. No pulmonic stenosis. Trace pulmonic regurgitation. Pericardium No pericardial effusion. Aorta Normal size aortic root and proximal ascending aorta. CONCLUSIONS 1. Normal left ventricle size and systolic function 2. No significant valvular regurgitation with trace pulmonic regurgitation. Previewed by: Dr. Ezekiel Clifton MD (Electronically Signed) Final Date: 07 January 2024 12:30
--- NOTE | 2024-01-07 12:37 | US ---
EXAMINATION TYPE: US carotid duplex BILAT DATE OF EXAM: 01/07/2024 COMPARISON: NONE CLINICAL INDICATION: Female, 58 years old with history of Z92.3 PERS HX IRRADIATION; dizziness TECHNIQUE: Carotid duplex ultrasound examination. Indirect Doppler criteria was utilized. FINDINGS: EXAM MEASUREMENTS: RIGHT: Peak Systolic Velocity (PSV) cm/sec ----- Right CCA: 71.1 ----- Right ICA: 85.6 ----- Right ECA: 104.5 ICA/CCA ratio: 1.2 RIGHT: End Diastole cm/sec ----- Right CCA: 21.7 ----- Right ICA: 20.2 ----- Right ECA: 21.7 LEFT: Peak Systolic Velocity (PSV) cm/sec ----- Left CCA: 111.3 ----- Left ICA: 104.8 ----- Left ECA: 109.7 ICA/CCA ratio: 0.9 LEFT: End Diastole cm/sec ----- Left CCA: 45.1 ----- Left ICA: 40.2 ----- Left ECA: 24.1 VERTEBRALS (direction of flow): Right Vertebral: Antegrade Left Vertebral: Antegrade Rhythm: Normal FIELD SALES TRAINER NOTES: No significant stenosis seen IMPRESSION: 1. No significant flow-limiting stenosis Criteria for Assigning % of Stenosis / Diameter reduction (Estimation based on the indirect measurements of the internal carotid artery velocities (ICA PSV). 1. Normal (no stenosis)=ICA PSV < 125 cm/s: ratio < 2.0: ICA EDV<40 cm/s. 2. Less than 50% stenosis=ICA PSV < 125 cm/s: ratio < 2.0: ICA EDV<40 cm/s. 3. 50 to 69% stenosis=ICA PSV of 125 to 230 cm/s: ration 2.0 ? 4.0: ICA EDV 40-100 cm/s. 4. Greater than 70% stenosis to near occlusion= ICA PSV > 230 cm/s: ratio > 4.0: ICA EDV > 100 cm/s. 5. Near occlusion= ICA PSV velocities may be low or undetectable: variable ratio and ICA EDV. 6. Total occlusion=unable to detect flow.
== END | disposition home or self-care (01) ==
LOC: RADUSWWP 07:20
PROVIDERS: ATTEND Family Medicine
DX: Z92.3 Personal history of irradiation (principal); R42 Dizziness and giddiness
CPT/HCPCS: 93880; C8929; Q9957; 93306